=== PATIENT | female | born 1965 | race Caucasian/White ===

== ENCOUNTER → 2016-11-17 | Outpatient (CLI) | payer OTHER ==
[2016-11-16 15:31] VITALS: BP 149/89; PULSE 89; Ht 170.2 cm; Wt 81.8 kg
[~2016-11-17] VITALS: Ht 170.2 cm; Wt 81.8 kg
[~2016-11-17] MED LIST: ALBUAER2 INH; AMLO10TA2 PO; ASPI81TA21 PO; CALCTAB13 PO; CLON0.5T3 PO; FAMO20TA11 PO; FENO54TA PO; FERR325T5 PO; LOSA25TA18 PO; MYCO250C26 PO; TACR1CAP5 PO
--- NOTE | 2016-11-18 06:50 | PAP/PSG TECHNICIAN REPORT ---
Medical Services Assistant Polysomnogram Report Study name: None Report date: 11/18/2016 Study date: 11/17/2016 Referring Physician: JULIO C BAKER D.O. Name: PATEL PERNELL Pandya Interpreting Physician: Julio C Baker D.O. Date of : 1965 Medical Services Assistant: Janice Benson, PSGT. Sex: Female Age: 51 StudyType: PSG Weight: 180.3 lbs Height: 51 years, Height 5' 7" Neck Circum:13.5 inches BMI: 28.24 Medications: SEE LIST OF TWENTY MEDICATIONS IN CHART. Patient History 51 yr. old female in room 7, presents for a split night study w/ an ahi of 10. She has copd , snoring restlessness in her legs and post renal transplant. Has had edilia in the past she states that it was to mild for treatment at that time. Ess= 8, Neck= Parameters Monitored NPSG: E1-M2, E2-M1, Fp1-M2, Fp2-M1, F3-M2, F4-M2, F4-M1, C3-M2, C4-M2, C4-M1, O1-M2, O2-M2, O2-M1, T3-M2, T4-M1, P3-M2, P4-M1, CHIN1, CHIN2, HR, EKG, Legs, PFLOW, SNOR, FLOW, CFLOW, Tidal Volume, THOR, ABDO, SpO2, PLTH, CPRESS, ETCO2 Wave, ETCO2, pH Sleep Architecture Sleep Stages Time at Lights Off 9:22:05 PM STAGES Time (min.) TST (%) Time at Lights On 5:15:35 AM Wake 162.5 -- Total Recording Time (TRT) 474.00 min. N1 25.5 8 Total Sleep Period (TSP) 374.0 min. N2 196.0 63 Total Sleep Time (TST) 310.0min. N3 0.0 0 Awake Time 163.5 min. REM 88.5 29 Wake after Sleep Onset 64.0 min. Sleep Efficiency (SE) 66 % Sleep Onset Latency (SOY) 99.5 min. Number of Stage 1 Shifts None Awakenings 8 Stage Changes 42 Number of REM periods 2 REM 88.5 29 REM Latency 204.5 min. NREM 221.5 71 Body Position Analysis Supine Right Left Side Prone Vertical Total Sleep Time (min.) 180.9 27.0 153.9 180.87 0.0 0.0 Total Sleep Time (%) 42% 9% 50% 58 0% N/A% Total Sleep Time REM (min.) 58.6 0.0 29.9 None 0.0 0.0 Total Sleep Time NREM (min.) 70.5 27.0 124.0 None 0.0 0.0 Intermittent Wake (min.) 51.8 24.5 86.2 None 0.0 0.0 Total Sleep Period (%) 37% None None None None None Arousals Myoclonus (PLM) * Events Count Index Events Count Index Spontaneous 17 3 Events Awake (PLMW) 3 1.1 Respiratory 0 0.0 Events Asleep w/ Arousal (PLMA) 2 0.4 PLM 2 0 Events Asleep w/o Arousal (PLMS) 134 25.9 Snoring 19 4 Total Asleep 136 26.3 Total 37 7 Total 139 18 Respiratory Analysis * CA OA MA CH H RERA Total Count 0 0 0 0 20 18 20 Index 0.0 0.0 0.0 0 3.9 3 7.4 Mean Duration 0.0 0.0 0.0 0.00 16.5 11.6 14.2 Longest Duration 0.0 0.0 0.0 0.00 0.0 17.5 25.5 Respiratory Event Summary Total Supine ~Supine Right Left Prone REM NREM Apneas Count 0 0 0 0 0 N/A 0 0 Index 0.0 0 0 0.0 0.0 N/A 0 0 Hypopneas (4% Desat) Count 20 12 8 3 5 N/A 6 14 Index 3.9 5.6 3 6.7 1.9 N/A 4.1 3.8 Apneas & All Hypopneas Count 20 12 8 3 5 N/A 6 14 Index 3.9 6 3 7 2 N/A 4.1 3.8 Respiratory Events (Home [employer]er+All Hyp+RERA) Count 20 30 8 3 5 N/A 6 14 Index 7.4 14 3 6.7 1.9 N/A 14.2 4.6 Respiratory Related Arousal Count 0 30 0 0 0 N/A 0 0 Index 0.0 0 0 0 0 N/A 0 0 Snoring Analysis Supine Right Left Prone REM NREM Total Snore duration 51.2 min Snores count 1,200 169 1,257 N/A 778 1,848 2,626 Snore mean duration 1.2 Sec Snores index 558 376 490 N/A 527.5 500.6 508.3 TST with snoring (%) 16.5% Desaturation Event Summary: Minimum %SpO2 Event Count Mean/Min/Max Duration(sec.) Desaturation Index % Time In Bed > 90 20 25.1 / 13.8 / 51.8 4.3 60.5 86 - 90 11 22.9 / 9.3 / 37.8 3.6 39.5 81 - 85 0 N/A 0.0 0.1 76 - 80 0 N/A 0.0 0.0 71 - 75 0 N/A 0.0 0.0 66 - 70 0 N/A 0.0 0.0 61 - 65 0 N/A 0.0 0.0 56 - 60 0 N/A 0.0 0.0 51 - 55 0 N/A 0.0 0.0 < 50 0 N/A 0.0 0.0 Total REM NREM Awake <50% 0.0 min. 0.0 min. 0.0 min. 0.0 min. 51 - 60% 0.1 min. 0.0 min. 0.0 min. 0.1 min. 61 - 70% 0.0 min. 0.0 min. 0.0 min. 0.0 min. 71 - 80% 0.0 min. 0.0 min. 0.0 min. 0.0 min. 81 - 90% 182.8 min. 16.5 min. 147.0 min. 19.3 min. 91 - 100% 279.7 min. 72.0 min. 71.5 min. 136.1 min. Average 91 92 90 92 Minimum SpO2 59 88 85 59 Desaturation Event Index 3.2 7.5 4.1 0.0 # Desat. Events below 89% 13 3 10 N/A Time(%) with Saturation below 89% 8.2 0.3 7.7 0.2 Time(min.) with Saturation below 89% 37.9 1.2 35.7 1.1 Time (mins) REM (mins) NREM (mins) % of TST SpO2 Below 90% 25 10 N15 35.7 SpO2 Below 88% 5 0 0 5 Heart Rate Analysis Min (bpm) Max (bpm) Average (bpm) Awake 54 127 69 NREM 54 77 64 REM 55 74 64 Overall 54 77 64 Supplemental O2 Values Minimum O2 level: None Value Start Time End Time Medical Services Assistant Comments PSG Study MS. Keene slept in the right, left, and supine positions. No cardiac arrhythmia. PLM's noted. No bruxism noted. Snoring was noted and scored as a 3 on a scale of 1 through 5. (0=no snoring, 5=snoring loud enough to be heard through a closed door or down the james way) Ms. Keene awoke to use the restroom one time during the night. Ms. Keene stated, I did not sleep as well as I do when I am in my own bed. The final report will be interpreted and signed by a sleep physician. The completed physician report will then be placed in the patient medical record. Pt. displayed a lot of anxiety when she arrived, there was a long onset to sleep. She woke once for the bathroom and once for a leg cramp just prior to end of study. Pt. displayed low oxygen saturations along with mild edilia.Moderate snoring heard and displayed. Therapy (cm H2O) 0 TIB (min.) 472.5 TST (min.) 310.0 Sleep Onset (min.) 99.5 REM Onset From Sleep (min.) 204.5 Sleep Efficiency % 66 Wakefulness (%) 34 Wakefulness (min.) 163.5 NREM 1 (%) 8 NREM 1 (min.) 25.5 NREM 2 (%) 63 NREM 2 (min.) 196.0 NREM 3 (%) 0 NREM 3 (min.) 0.0 REM (%) 29 REM (min.) 88.5 # Arousals 37 Arousal Index 7 # Snore 2,626 Snore Index 508.3 AHI 3.9 AHI Supine 6 AHI Non-Supine 3 NREM AHI 3.8 REM AHI 4.1 RDI 7.4 # Obstructive Apnea 0 # Central Apnea 0 # Mixed Apnea 0 # Hypopneas 20 RERAs 18 Total Respiratory Events 39 Time Below SpO2 89% (min.) 36.9 Mean NREM SpO2 (%) 90 Mean REM SpO2 (%) 92 Mean Sleep SpO2 (%) 90 Min NREM SpO2 (%) 85 Min REM SpO2 (%) 88 Position Supine (min.) 180.9 Position Non-supine (min.) 180.9 LM Index Sleep 26.3 LM Index NREM 27.9 LM Index REM 22.4 Mean Heart Rate (bpm) 64 Min Heart Rate (bpm) 54
--- NOTE | 2016-11-21 01:25 | POLYSOMNOGRAPH REPORT ---
CLINICAL DATA: A 51-year-old female with BMI of 28.[address] Dumont for evaluation of obstructive sleep apnea and possible PLMD. A split night study was requested, but the patient did not reach criteria for a split night study as outlined by the ordering physician. She does have COPD, snoring, restlessness in her legs and is post-renal transplant. She had obstructive sleep apnea in the past. SLEEP ARCHITECTURE: Total sleep period was 374 minutes. Total sleep time was 310 minutes divided between 221.5 minutes of non-REM sleep and 88.5 minutes of REM sleep. Sleep onset latency was delayed at 99.5 minutes. REM latency was delayed at 204.5 minutes. Sleep efficiency was reduced at 66%. Awake after sleep onset was 64 minutes. Sleep consisted of stage N1 8%, N2 63%, REM 29%. AROUSAL DATA: 37 arousals were recorded for an index of 7 per hour. PERIODIC LIMB MOVEMENTS DATA: Nnpn-[id number]-[id number] elevation of limb movement was seen during sleep. There were 136 limb movements during sleep were noted for an index of 26.3 per hour with arousal index of 0.4 per hour. RESPIRATORY DATA: Very mild sleep-disordered breathing was noted. The AHI was 3.9. The RDI was 7.4. There were 20 hypopneic episodes. The mean duration of hypopnea was 16.5 seconds. There were 18 RERAs. The longest was 17.5 seconds. OXIMETRY DATA: Mild hypoxemia was seen. Oxygen kiara was 85% during non-REM sleep. The mean saturation was 91%. Time below 88% was 5 minutes. EKG: Heart ranged from 54-77 beats per minute. No arrhythmias were noted. FLAG MAKER'S COMMENTS AND TREATMENT SUMMARY: The patient slept in the right, left, and supine positions. No bruxism was noted. Snoring was moderate, rated 3 on a scale of 1-5. She was quite anxious when she arrived and there was a long onset to sleep. She does have some mildly reduced oxygen saturations throughout the study. IMPRESSION: Very mild sleep disordered breathing with an apnea-hypopnea index of 3.9 and respiratory disturbance index was 7.4 with mild nocturnal hypoxemia and mildly elevated limb movements during sleep. RECOMMENDATIONS: The patient may benefit from weight loss, use of an oral appliance,positional therapy, or consideration of a repeat sleep study with CPAP. Clinical correlation is needed. [facility]
== END | disposition home or self-care (01) ==
LOC: C.NEUR 21:00
PROVIDERS: ATTEND Internal Medicine Pulmonary Disease
DX: G47.33 Obstructive sleep apnea (adult) (pediatric) (principal)

== ENCOUNTER → 2016-11-24 | Outpatient (CLI) | payer OTHER ==
[~2016-11-24] VITALS: Ht 170.2 cm; Wt 83.1 kg
[2016-11-24 14:04] VITALS: BP 133/85; PULSE 92; Ht 170.2 cm; Wt 83.1 kg
== END | disposition home or self-care (01) ==
LOC: C.NEUR 13:52
PROVIDERS: ATTEND Internal Medicine Pulmonary Disease
DX: G47.33 Obstructive sleep apnea (adult) (pediatric) (principal); G47.61 Periodic limb movement disorder

== ENCOUNTER → 2017-07-27 | Outpatient (CLI) | payer OTHER ==
--- NOTE | 2017-07-27 15:23 | MAMMOGRAPHY REPORT ---
BILATERAL DIGITAL SCREENING MAMMOGRAM TOMOSYNTHESIS WITH CAD: 07/27/2017 CLINICAL HISTORY: Routine screening. TECHNIQUE: Breast tomosynthesis in addition to standard 2D mammography was performed. Current study was also evaluated with a Computer Aided Detection (CAD) system. COMPARISON: Comparison is made to exams dated: 07/26/2016 mammogram - [facility], 09/03/2013 mammogram, 11/23/2011 mammogram, and 12/09/2009 mammogram - [facility]. BREAST COMPOSITION: There are scattered areas of fibroglandular density in both breasts. FINDINGS: No suspicious masses, calcifications, or areas of architectural distortion are noted in ei ther breast. There has been no significant interval change compared to prior exams. Small circumscri bed bilateral benign-appearing masses are not significantly changed. Bilateral benign calcifications are also stable. Linear scar markers denote scars on the right upper outer and left upper outer sagar ast. IMPRESSION: ACR BI-RADS CATEGORY 2: BENIGN There is no mammographic evidence of malignancy. A 1 year screening mammogram is recommended. The pa tient will receive written notification of the results. Approximately 10% of breast cancers are not detected with mammography. A negative mammographic report should not delay biopsy if a clinically suggestive mass is present. Meghann Hurley M.D. ah/:07/27/2017 14:46:21 Marking Machine Tender: Ginette ROMERO)(M), [facility] letter sent: Normal 1/2 BI-RADS Code: ACR BI-RADS Category 2: Benign
== END | disposition home or self-care (01) ==
LOC: C.MAMM 09:40
PROVIDERS: ATTEND Nurse Practitioner Family
DX: Z12.31 Encounter for screening mammogram for malignant neoplasm of breast (principal)

== ENCOUNTER 2021-02-22 10:09 | Observation (INO) ==
[2021-02-22] MEDS ORDERED: ACETAMINOPHEN 325 MG TAB PO PRN (12:34)
[2021-02-22 13:22] LABS: Basophils # (auto) 0.01 K/uL (0-0.2); Basophils % (auto) 0.1 %; Eosinophils # (auto) 0.07 K/uL (0-0.5); Hematocrit (blood only) 37.1 % (37-47); Hemoglobin 12.3 g/dL (12.0-16.0); Immature Granulocytes # (auto) 0.01 K/uL (0.00-0.02); Immature Granulocytes % (auto) 0.1 %; Lymphocytes # (auto) 1.45 K/uL (1.2-3.4); Lymphocytes % (auto) 20.8 %; Mean Corpuscular Hemoglobin 30.8 pg (25-34); Mean Corpuscular Hgb Conc 33.2 g/dL (32-36); Monocytes # (auto) 0.43 K/uL (0.11-0.59); Monocytes % (auto) 6.2 %; Neutrophils # (auto) 4.99 K/uL (1.4-6.5); Neutrophils % (auto) 71.8 %; Platelet Count 218 K/uL (130-400); RDW Coefficient of Variation 13.5 % (11.5-14.5); RDW Standard Deviation 46.1 fL (36.4-46.3); Red Blood Count 3.99 M/uL (4.2-5.4); White Blood Count 6.96 K/uL (4.8-10.8)
[2021-02-22] MEDS: ONDANSETRON INJ 2 MG/ML 2 ML VIAL IV PRN ×2 (13:28→19:33)
[2021-02-22] MEDS: FAMOTIDINE 20 MG in SYRINGE 3 ML IV SCH ×2 (13:28→20:34)
[2021-02-22] MEDS ORDERED: MELATONIN 3 MG TAB PO PRN (14:03)
[2021-02-22 14:04] LABS: Alanine Aminotransferase 15 U/L (12-78); Albumin Level 3.5 gm/dl (3.4-5.0); Aspartate Aminotransferase 6 U/L (15-37); BUN Creatinine Ratio 15.5 (10-20); Blood Urea Nitrogen 15 mg/dl (7-18); Calcium 9.6 mg/dl (8.5-10.1); Carbon Dioxide 23 mmol/L (21-32); Chloride 112 mmol/L (98-107); Est GFR (African American) 72.9 ml/min; Est GFR (Non-African American) 62.9 ml/min; Glucose 91 mg/dl (70-99); Lipase 145 U/L (73-393); Potassium 4.1 mmol/L (3.5-5.1); Sodium 142 mmol/L (136-145)
[2021-02-22 14:06] LABS: Albumin Globulin Ratio 1.1 (0.9-2); Alkaline Phosphatase 85 U/L (45-117); Bilirubin,Total 0.4 mg/dl (0.2-1); Globulin 3.1 gm/dl (2.5-4.0); Total Protein 6.6 gm/dl (6.4-8.2)
--- NOTE | 2021-02-22 17:59 | Medical Student H&P ---
Date of Service February 22, 2021 Assessment & Plan (1) Nausea & vomiting: - Continue on IV Zofran. - Continue on IV Pepcid. - Give IVF to counter possible hypovolemia in the setting of recurrent emesis. - Given epigastric tenderness on exam, concern for gastric ulcer. EGD may be appropriate. GI consult placed. Present on Admission?: Yes (2) Hyperlipidemia: - Continue fenofibrate per home regimen. Present on Admission?: Yes (3) Hypertension: - Continue losartan per outpatient regimen. Present on Admission?: Yes (4) COPD (chronic obstructive pulmonary disease): - Continue Ventolin per outpatient regimen. Present on Admission?: Yes (5) Focal segmental glomerulosclerosis: - Continue tacrolimus and mycophenolate per outpatient regimen. Present on Admission?: Yes Admission and Anticipated Discharge Date Admission Date: February 22, 2021 History of Present Illness Chief Complaint: Nausea and Vomiting Primary Care Provider: ALYSHA Ortega Ms. Keene is a 55-year-old female with a history of focal segmental glomerulosclerosis s/p renal transplant on chronic immune suppression therapy who presents with a 3-4 week history of nausea and vomiting. She states that she has had persistent nausea and vomiting since she had her renal transplant in 2004 which she describes as vomiting 5-6 days per week. She states that this has worsened in the last few weeks to nausea and vomiting multiple times per day every day. She also endorses increased bloating and gas but states that there are times when she is unable to pass flatus. She has recently had epigastric abdominal pain that is worsened by both eating and drinking. She states that it is difficult for her to keep food down but is frequently exacerbated by her eating food 'that she shouldn't eat.' She states that she often vomits up both her anti-rejection meds and Zofran. Her emesis has been non-bloody and does not have a coffee ground appearance. She has also had diarrhea in recent days that is mucinous but non-bloody. She was seen in the [facility] ED yesterday, 02/21, at which time a CT scan revealed, "mildly dilated loops of small bowel in the left upper quadrant with associated increased central mesenteric lymphadenopathy and mild fat stranding. No distinct transition point can be identified. This could represent an enteritis or other infectious/inflammatory process. A partial small bowel obstruction is difficult to entirely exclude." A lipase was done at this time that was normal. She was discharged home with Zofran. Today, she reports that her nausea has improved with Zofran and has not have any episodes of emesis today but continues with anorexia. She continues to have epigastric pain. Allergies Allergy/AdvReac Type Severity Reaction Status Date / Time cyclophosphamide Allergy Intermediate URINARY Verified 02/22/21 12:49 RETENTION vancomycin Allergy Intermediate THROAT Verified 06/21/16 12:52 SHERIF GAGNON codeine AdvReac Mild N/V Verified 02/22/21 12:49 Home Medications Medication Instructions Recorded Confirmed Type AMLODIPINE BESYLATE (NORVASC) 10 mg PO QPM #0 tab 10/06/12 History Aspirin Enteric Coated (Ecotrin Or 81 mg PO QAM #0 tab 10/06/12 History Generic) CALCIUM CARBONATE-VITAMIN D 2 tabs PO QAM #0 tab 10/06/12 History (OS-DUANE 500 PLUS D) CLONAZEPAM (KLONOPIN) 0.5 mg PO TID #0 tab 10/06/12 History FENOFIBRATE (TRICOR) 54 mg PO QAM #0 tab 10/06/12 History LOSARTAN POTASSIUM (COZAAR) 25 mg PO QPM #0 tab 10/06/12 History TACROLIMUS (PROGRAF) 1 mg PO BID #0 cap 10/06/12 History Albuterol (Ventolin) 2 puff INHALATION QID PRN 5 Days 12/21/15 History #0 inhaler FERROUS SULFATE 1 tab PO QPM #0 12/21/15 History Famotidine (Pepcid) 20 mg PO QAM #0 tab 12/21/15 History MYCOPHENOLATE MOFETIL (CELLCEPT) 5 cap PO BID #0 cap 12/21/15 History Past Med/Surg History Surgical History (Updated 02/22/21 @ 18:47 by Berenice Pace) H/O: hysterectomy History of appendectomy Hx of cholecystectomy Renal transplant, status post Family History (Updated 02/22/21 @ 18:49 by Berenice Pace) Brother Hypertension Father Hypertension Kidney disease Mother Hypertension Sister Hypertension Son Hypertension Family/Other Kidney disease [place] Syndrome Social History (Updated 02/22/21 @ 18:51 by Berenice Pace) Smoking Status: Former smoker Tobacco Type: Cigarettes Age Quit Using Tobacco: 53; Years Smoked: 15; Second Hand Exposure: Yes; Do You Dip or Chew Tobacco: No; Hx Alcohol Use: No Preferred Language: Czech Communication Ability: Effective Medical Support Specialist Required: No Beliefs That Will Affect Care: None Current Living Situation: Spouse Other Information That Helps Us Care for You: No Feels Safe at Home: Yes Safety Concerns: Feels Safe At This Time Assistive Devices: Denture - Upper and Glasses Review of Systems + sweats intermittent facial swelling Physical Exam Physical Exam: Patient resting comfortably on exam. In no acute distress. Constitutional: WD/WN, vitals as above Respiratory: normal respiratory effort Auscultation: + wheezes Cardiovascular: RRR, no murmur, no edema Gastrointestinal (Abdomen): Inspection/Auscultation: abdomen normal to inspection and normal bowel sounds; abdomen not distended Percussion/Palpation: + abdomen tender (epigastric region) and abdomen soft; no guarding Skin: no rashes, warm and dry Psychiatric: A+Ox3, euthymic affect Results & Data ([facility]) Vital Signs (Past 12 Hours) Vital Signs Temp Resp BP Pulse Ox 02/22/21 15:00 36.9 C 18 147/70 H 90 02/22/21 12:35 37 C 16 145/82 H 91 Laboratory Results 02/22/21 02/22/21 02/22/21 18:38 12:56 12:56 WBC 6.96 RBC 3.99 L Hgb 12.3 Hct 37.1 MCV 93.0 MCH 30.8 MCHC 33.2 RDW Std Deviation 46.1 RDW Coeff of Deepali 13.5 Plt Count 218 MPV 11.0 H Immature Gran % (Auto) 0.1 Neut % (Auto) 71.8 Lymph % (Auto) 20.8 [place] % (Auto) 6.2 Eos % (Auto) 1.0 Baso % (Auto) 0.1 Neut # (Auto) 4.99 Lymph # (Auto) 1.45 [place] # (Auto) 0.43 Eos # (Auto) 0.07 Baso # (Auto) 0.01 Immature Gran # (Auto) 0.01 Sodium 142 Potassium 4.1 Chloride 112 H Carbon Dioxide 23 Anion Gap 7.0 BUN 15 Creatinine 1.00 Est Cr Clr Drug Dosing Not Reportable Est GFR ( Amer) 72.9 Est GFR (Non-Af Amer) 62.9 BUN/Creatinine Ratio 15.5 Glucose 91 Calcium 9.6 Total Bilirubin 0.4 AST 6 L ALT 15 Alkaline Phosphatase 85 Total Protein 6.6 Albumin 3.5 Globulin 3.1 Albumin/Globulin Ratio 1.1 Lipase 145 COVID-19 Eval Order Covid19 at [facility] Diagnostic Findings Outside CT as per subjective. Medications Administered Current Inpatient Medications Acetaminophen (Acetaminophen 325 Mg Tab) 650 mg PO Q4H PRN PRN Reason: Pain or Fever Stop: 03/24/21 12:33 Famotidine 20 mg/ Syringe 5 mls @ 2.5 mls/min IV BID MYRIAM Stop: 03/24/21 12:59 Last Admin: 02/22/21 13:28 Dose: 2.5 mls/min Documented by: Losartan Potassium (Losartan Potassium 50 Mg Tab) 100 mg PO QPM MYRIAM Stop: 03/24/21 20:59 Melatonin (Melatonin 3 Mg Tab) 3 mg PO HS PRN PRN Reason: Sleep Stop: 03/24/21 14:02 Mycophenolate Mofetil (Mycophenolate Mofetil 250 Mg Cap) 1,250 mg PO BID MYRIAM Stop: 03/24/21 20:59 Ondansetron HCl (Ondansetron Inj 2 Mg/Ml 2 Ml Vial) 4 mg IV Q6H PRN PRN Reason: Nausea Stop: 03/24/21 12:33 Last Admin: 02/22/21 13:28 Dose: 4 mg Documented by: Tacrolimus (Tacrolimus 1 Mg Cap) 1 mg PO BID MYRIAM Stop: 03/24/21 20:59 Code Status & VTE Plan VTE Prophylaxis Plan VTE Prophylaxis will be ordered: Yes Supervising Attestation I personally examined the patient and verified all patel points of history and exam, discussed case, and agree with decision making with Marlee Pace MS4. Notes that she has ongoing nausea and vomiting for yearsbasically since the transplant. She notes that there are times of ups and downs of it, but also notes that over the last few weeks and definitely over the last week she has done far worse than before. She has a degree of epigastric pain fairly frequently if not constantly, and a lot more nausea and vomiting, including 2 days in the last 3 or 4 days where she was basically vomiting for hours and hours straight. She notes also some degree of night sweats over the last 5 months or so, weight loss of about 10 pounds over the last month, and may be another 10 pounds prior to that over the last for 5 months. She denies any hematemesis. Vitals noted, in general she is awake and alert pleasant but appears very fatigued. HEENT normocephalic atraumatic mucous membranes are moist. Breathing unlabored no accessory muscle use good effort. Skin shows no rashes no pallor or icterus. Abdomen is soft but she has fairly significant epigastric tenderness no rigidity or rebound. Extremities show no cyanosis clubbing. Intractable nausea and vomitingquestion whether this is just a worsening of her normal cycles of nausea and vomiting, possibly made worse by degree of dehydration, versus if she is starting to develop a degree of peptic ulcer disease. Will treat with supportive/symptomatic care, but also ask GI to see her in regards to possibly an EGD. We will try to start to put together a better assessment and plan for her chronic nausea and vomiting as well. Night sweatswe will follow, and work on further work-up if necessary. DVT prophylaxisambulation
[2021-02-22] MEDS ORDERED: clonazePAM 0.5 MG TAB PO PRN (19:58)
--- NOTE | 2021-02-22 20:02 | Billing Data ---
Date of Service February 22, 2021 Coding Level of Care Code 13233 OBS Care - Level 3
[2021-02-22] MEDS: LACTATED RINGER'S 1,000 ML IV SCH (20:08)
[2021-02-22] MEDS: TACROLIMUS 1 MG CAP PO SCH (20:35)
[2021-02-22] MEDS: risperiDONE 0.5 MG TABLET PO SCH (20:35)
[2021-02-22] MEDS: MYCOPHENOLATE MOFETIL 250 MG CAP PO SCH (20:35)
[2021-02-22] MEDS: LOSARTAN POTASSIUM 50 MG TAB PO SCH (21:18)
[2021-02-22] MEDS: NICOTINE 14 MG/24 HR PATCH TD SCH (22:07)
[2021-02-23] MEDS: ONDANSETRON INJ 2 MG/ML 2 ML VIAL IV PRN ×3 (01:49→17:32)
[2021-02-23] MEDS: LACTATED RINGER'S 1,000 ML IV SCH ×3 (03:39→19:14)
[2021-02-23 07:13] LABS: Hematocrit (blood only) 38.1 % (37-47); Hemoglobin 12.7 g/dL (12.0-16.0); Mean Corpuscular Hemoglobin 31.5 pg (25-34); Mean Corpuscular Hgb Conc 33.3 g/dL (32-36); Mean Corpuscular Volume 94.5 fL (80-100); Mean Platelet Volume 11.2 fL (7.4-10.4); Platelet Count 204 K/uL (130-400); RDW Coefficient of Variation 13.3 % (11.5-14.5); RDW Standard Deviation 45.9 fL (36.4-46.3); Red Blood Count 4.03 M/uL (4.2-5.4)
[2021-02-23 07:45] LABS: C Reactive Protein 0.91 mg/dl (0-0.29); Calcium 9.4 mg/dl (8.5-10.1); Creatinine Clr Calc Pharmacy 71.5 ml/min; Est GFR (African American) 77.6 ml/min; Magnesium 1.6 mg/dl (1.8-2.4); Phosphorus 3.4 mg/dl (2.5-4.9); Potassium 4.1 mmol/L (3.5-5.1)
[2021-02-23] MEDS: TACROLIMUS 1 MG CAP PO SCH ×2 (08:00→20:09)
[2021-02-23] MEDS: MYCOPHENOLATE MOFETIL 250 MG CAP PO SCH ×2 (08:00→20:08)
[2021-02-23] MEDS: FAMOTIDINE 20 MG in SYRINGE 3 ML IV SCH ×2 (08:10→20:22)
--- NOTE | 2021-02-23 09:19 | Gastrointestinal Consultation ---
Date of Consultation February 23, 2021 Assessment & Plan (1) Nausea & vomiting: (2) LUQ pain: DDX: GERD vs gastritis vs PUD vs gastroparesis vs ileus vs PSBO vs other. 1. Abdominal series now. 2. Continue Famotidine 20 mg BID. 3. Recommend tobacco cessation efforts. 4. If no obstruction, will consider EGD for further evaluation tomorrow. Thank you for allowing us to participate in the care of this pleasant patient. If you have any questions or concerns, please do not hesitate to contact us. Supervising Physician Co-Signing Physician Notes I personally evaluated the patient and agree with the findings as documented by ALYSHA Brody Exam: abd: soft, mild epigastric, LUQ tenderness, nd f/u abdominal series, if normal then plan for EGD tomorrow to further evaluate, keep NPO at this time regardless. History of Present Illness Reason for Consultation: N/V Requesting Physician: Dr. Quintana Attending Physician: David Mckeon DO History of Present Illness Patient is a very pleasant 55 y.o. female with a history of focal segmental glomerulosclerosis s/p renal transplant with chronic nausea and vomiting admitted with an acute onset of worsening nausea with vomiting as well as LUQ pain which began approximately 3-4 weeks ago. She states the onset of symptoms was preceded by an episode of heavy lifting of several cases of bottled water. She reports she has been having abdominal pain since that time. Denies any fevers or chills. Emesis starts as undigested food, then turns to bilious and eventually "foamy". The abdomen is constantly tender but more intense pains wax and wane. She states that eating worsens her symptoms. There is associated sensation of fullness and bloating and distention in the LUQ after eating. Describes her bowel movements as soft, to loose, with a frequency of several times per day. No bloody or black stools. No hematemesis. Denies any NSAID use. +low dose aspirin which she states she stopped at the onset of her GI symptoms. + daily tobacco use but denies ETOH. Reports she was previously diagnosed with a hiatus hernia via upper endoscopy performed ~ 5 years ago. From review of H&P, it appears she did have a nonenhanced CT abdomen which demonstrated dilated LUQ small bowel loops with associated fat stranding without discreet mass or transition point to suggest obstruction. Labs from this morning demonstrated no leukocytosis, anemia or liver panel elevations. Lipase was normal at 145. Allergies Allergy/AdvReac Type Severity Reaction Status Date / Time cyclophosphamide Allergy Intermediate URINARY Verified 02/22/21 12:49 RETENTION vancomycin Allergy Intermediate THROAT Verified 06/21/16 12:52 SWELLS HIVJOSE codeine AdvReac Mild N/V Verified 02/22/21 12:49 Home Medications Medication Instructions Recorded Confirmed Type AMLODIPINE BESYLATE (NORVASC) 10 mg PO QPM #0 tab 10/06/12 History Aspirin Enteric Coated (Ecotrin Or 81 mg PO QAM #0 tab 10/06/12 History Generic) CALCIUM CARBONATE-VITAMIN D 2 tabs PO QAM #0 tab 10/06/12 History (OS-DUANE 500 PLUS D) CLONAZEPAM (KLONOPIN) 0.5 mg PO TID #0 tab 10/06/12 History FENOFIBRATE (TRICOR) 54 mg PO QAM #0 tab 10/06/12 History LOSARTAN POTASSIUM (COZAAR) 25 mg PO QPM #0 tab 10/06/12 History TACROLIMUS (PROGRAF) 1 mg PO BID #0 cap 10/06/12 History Albuterol (Ventolin) 2 puff INHALATION QID PRN 5 Days 12/21/15 History #0 inhaler FERROUS SULFATE 1 tab PO QPM #0 12/21/15 History Famotidine (Pepcid) 20 mg PO QAM #0 tab 12/21/15 History MYCOPHENOLATE MOFETIL (CELLCEPT) 5 cap PO BID #0 cap 12/21/15 History Patient History Surgical History H/O: hysterectomy History of appendectomy Hx of cholecystectomy Renal transplant, status post Family History Brother Hypertension Father Hypertension Kidney disease Mother Hypertension Sister Hypertension Son Hypertension Family/Other Kidney disease Alport Syndrome Social History Smoking Status: Former smoker Tobacco Type: Cigarettes Age Quit Using Tobacco: 53; Years Smoked: 15; Second Hand Exposure: Yes; Do You Dip or Chew Tobacco: No; Hx Alcohol Use: No Preferred Language: Pashto Communication Ability: Effective Pharmacy Resource Tech Required: No Beliefs That Will Affect Care: None Current Living Situation: Spouse Other Information That Helps Us Care for You: No Feels Safe at Home: Yes Safety Concerns: Feels Safe At This Time Assistive Devices: None Review of Systems Review of Systems: All systems reviewed & are unremarkable except as noted in HPI & below Physical Exam Constitutional: WD/WN, vitals as above Eyes: EOM intact bilaterally Neck: normal appearance Respiratory: normal respiratory effort, lungs clear to auscultation Cardiovascular: Rate/Rhythm: regular rate and regular rhythm Heart Sounds: no gallop and no murmur Gastrointestinal (Abdomen): Inspection/Auscultation: normal bowel sounds Percussion/Palpation: + abdomen tender (LUQ) and abdomen soft; no guarding, abdomen not rigid and no hernia Musculoskeletal: Extremities: no cyanosis no lower extremity edema Skin: no rashes, warm and dry Neurologic: moves all extremities Psychiatric: A+Ox3, euthymic affect Results & Data ([facility]) Vital Signs (Past 12 Hours) Vital Signs Temp Pulse Resp BP Pulse Ox 02/23/21 07:32 36.7 C 58 L 18 139/91 94 02/23/21 01:54 36.8 C 02/22/21 22:00 36.9 C 70 18 133/79 94 Laboratory Results Abnormal lab results 02/22/21 02/22/21 02/23/21 Range/Units 12:56 12:56 06:44 RBC 3.99 L (4.2-5.4) M/uL MPV 11.0 H (7.4-10.4) fL Chloride 112 H 112 H (98-107) mmol/L Magnesium 1.6 L (1.8-2.4) mg/dl AST 6 L (15-37) U/L C-Reactive Protein 0.91 H (0-0.29) mg/dl 02/23/21 Range/Units 06:44 RBC 4.03 L (4.2-5.4) M/uL MPV 11.2 H (7.4-10.4) fL Chloride (98-107) mmol/L Magnesium (1.8-2.4) mg/dl AST (15-37) U/L C-Reactive Protein (0-0.29) mg/dl PG Care Time/CCT Total # of Minutes Spent Total Time Spent with Patient: Total time spent is greater than 50% in coordina tion of care (as documented) at patient's floor/unit and/or counseling patient: Coding Level of Care Code 40144 Initial Inpt Care Lvl 3 Diagnoses Nausea & vomiting R11.2 LUQ pain R10.12
--- NOTE | 2021-02-23 12:38 | Medical Student Progress Note ---
Date of Service February 23, 2021 Assessment & Plan (1) Nausea & vomiting: Ms. Keene is a 55-year-old female with a history of focal segmental glomerulosclerosis s/p renal transplant with a history of acute on chronic nausea and vomiting. Suspect that the chronic nausea is due to her immunosuppr ession medication; however, given the different character and quantity of the acute nausea vomiting it is potentially concerning for GERD vs. gastritis vs. peptic ulcer disease vs. gastroparesis vs. ileus vs. partial small bowel obstruction vs. another etiology. - Continue on IV Zofran. - Continue on IV Pepcid. - Give IVF to counter possible hypovolemia in the setting of recurrent emesis. - Appreciate GI consult. - Patient to undergo abdominal series today. If no obstruction, EGD tomorrow. - NPO in preparation for possible EGD. (2) Hyperlipidemia: - Continue fenofibrate per home regimen. (3) Hypertension: - Continue losartan per outpatient regimen. (4) COPD (chronic obstructive pulmonary disease): - Continue Ventolin per outpatient regimen. (5) Focal segmental glomerulosclerosis: - Continue tacrolimus and mycophenolate per outpatient regimen. Admission and Anticipated Discharge Date Admission Date: February 22, 2021 Supervising Attestation I personally examined the patient and verified all patel points of history and exam, discussed case, and agree with decision making with Marlee Pace MS4 Feeling a bit better today. X-rays donefor EGD tomorrow. No other new complaints. Vitals noted, in general she is awake and alert pleasant no distress. HEENT normocephalic atraumatic mucous membranes moist. Abdomen is soft she still has ongoing epigastric tenderness although not quite as much as yesterday, still no guarding rebound or rigidity. Nausea vomiting abdominal paincontinue supportive care, EGD tomorrow. Otherwise as above. Subjective Ms. Keene is a 55-year-old female with a history of focal segmental glomerulosclerosis s/p renal transplant on chronic immune suppression therapy who presents with a 3-4 week history of nausea and vomiting in the context of chronic nausea and vomiting. She is doing well today with no nausea and vomiting today. She does endorse a bowel movement last night. She states that she has not had any abdominal pain overnight but did have some cramping and gas in the epigastric region upon eating broth this morning. Review of Systems Constitutional: + sweats (night sweats) Neurologic: Facial swelling in the outpatient setting Physical Exam Physical Exam: Patient resting comfortably on exam. In no acute distress. Constitutional: WD/WN, vitals as above Respiratory: normal respiratory effort Auscultation: + wheezes Cardiovascular: RRR, no murmur, no edema Gastrointestinal (Abdomen): Inspection/Auscultation: abdomen normal to inspection and normal bowel sounds; abdomen not distended Percussion/Palpation: + abdomen tender (epigastric region; decreased from yesterday) and abdomen soft; no guarding Skin: no rashes, warm and dry Psychiatric: A+Ox3, euthymic affect Results & Data ([facility]) Vital Signs (Past 12 Hours) Vital Signs Temp Pulse Resp BP Pulse Ox 02/23/21 07:32 36.7 C 58 L 18 139/91 94 02/23/21 01:54 36.8 C Laboratory Results 02/23/21 02/23/21 02/23/21 06:44 06:44 06:44 WBC 6.20 RBC 4.03 L Hgb 12.7 Hct 38.1 MCV 94.5 MCH 31.5 MCHC 33.3 RDW Std Deviation 45.9 RDW Coeff of Deepali 13.3 Plt Count 204 MPV 11.2 H Immature Gran % (Auto) Neut % (Auto) Lymph % (Auto) Franklin % (Auto) Eos % (Auto) Baso % (Auto) Neut # (Auto) Lymph # (Auto) Franklin # (Auto) Eos # (Auto) Baso # (Auto) Immature Gran # (Auto) ESR 11 Sodium 144 Potassium 4.1 Chloride 112 H Carbon Dioxide 26 Anion Gap 6.0 BUN 10 D Creatinine 0.95 Est Cr Clr Drug Dosing 71.5 Est GFR ( Amer) 77.6 Est GFR (Non-Af Amer) 67.0 BUN/Creatinine Ratio 10.0 Glucose 98 Calcium 9.4 Phosphorus 3.4 Magnesium 1.6 L Total Bilirubin AST ALT Alkaline Phosphatase C-Reactive Protein 0.91 H Total Protein Albumin Globulin Albumin/Globulin Ratio Lipase COVID-19 Eval Order SARS-CoV-2 (PCR) 02/22/21 02/22/21 02/22/21 18:38 18:38 12:56 WBC RBC Hgb Hct MCV MCH MCHC RDW Std Deviation RDW Coeff of Deepali Plt Count MPV Immature Gran % (Auto) Neut % (Auto) Lymph % (Auto) Franklin % (Auto) Eos % (Auto) Baso % (Auto) Neut # (Auto) Lymph # (Auto) Franklin # (Auto) Eos # (Auto) Baso # (Auto) Immature Gran # (Auto) ESR Sodium 142 Potassium 4.1 Chloride 112 H Carbon Dioxide 23 Anion Gap 7.0 BUN 15 Creatinine 1.00 Est Cr Clr Drug Dosing Not Reportable Est GFR ( Amer) 72.9 Est GFR (Non-Af Amer) 62.9 BUN/Creatinine Ratio 15.5 Glucose 91 Calcium 9.6 Phosphorus Magnesium Total Bilirubin 0.4 AST 6 L ALT 15 Alkaline Phosphatase 85 C-Reactive Protein Total Protein 6.6 Albumin 3.5 Globulin 3.1 Albumin/Globulin Ratio 1.1 Lipase 145 COVID-19 Eval Order Covid19 at [facility] SARS-CoV-2 (PCR) NEGATIVE 02/22/21 12:56 WBC 6.96 RBC 3.99 L Hgb 12.3 Hct 37.1 MCV 93.0 MCH 30.8 MCHC 33.2 RDW Std Deviation 46.1 RDW Coeff of Deepali 13.5 Plt Count 218 MPV 11.0 H Immature Gran % (Auto) 0.1 Neut % (Auto) 71.8 Lymph % (Auto) 20.8 Franklin % (Auto) 6.2 Eos % (Auto) 1.0 Baso % (Auto) 0.1 Neut # (Auto) 4.99 Lymph # (Auto) 1.45 Franklin # (Auto) 0.43 Eos # (Auto) 0.07 Baso # (Auto) 0.01 Immature Gran # (Auto) 0.01 ESR Sodium Potassium Chloride Carbon Dioxide Anion Gap BUN Creatinine Est Cr Clr Drug Dosing Est GFR ( Amer) Est GFR (Non-Af Amer) BUN/Creatinine Ratio Glucose Calcium Phosphorus Magnesium Total Bilirubin AST ALT Alkaline Phosphatase C-Reactive Protein Total Protein Albumin Globulin Albumin/Globulin Ratio Lipase COVID-19 Eval Order SARS-CoV-2 (PCR) Medications Administered Current Inpatient Medications Acetaminophen (Acetaminophen 325 Mg Tab) 650 mg PO Q4H PRN PRN Reason: Pain or Fever Stop: 03/24/21 12:33 Clonazepam (Clonazepam 0.5 Mg Tab) 0.5 mg PO TID PRN PRN Reason: Anxiety Stop: 03/24/21 19:57 Last Admin: 02/22/21 20:35 Dose: 0.5 mg Documented by: Famotidine 20 mg/ Syringe 5 mls @ 2.5 mls/min IV BID MYRIAM Stop: 03/24/21 12:59 Last Admin: 02/23/21 08:10 Dose: 2.5 mls/min Documented by: Lactated Ringer's (Lr) 1,000 mls @ 125 mls/hr IV .Q8H MYRIAM Stop: 03/24/21 20:14 Last Admin: 02/23/21 11:12 Dose: 125 mls/hr Documented by: Losartan Potassium (Losartan Potassium 50 Mg Tab) 100 mg PO QPM MYRIAM Stop: 03/24/21 20:59 Last Admin: 02/22/21 21:18 Dose: 100 mg Documented by: Melatonin (Melatonin 3 Mg Tab) 3 mg PO HS PRN PRN Reason: Sleep Stop: 03/24/21 14:02 Last Admin: 02/22/21 20:35 Dose: 3 mg Documented by: Miscellaneous (Remove Nicoderm Patch) 1 ea N/A DAILY@2058 [facility] Stop: 03/25/21 20:58 Mycophenolate Mofetil (Mycophenolate Mofetil 250 Mg Cap) 1,250 mg PO BID [facility] Stop: 03/24/21 20:59 Last Admin: 02/23/21 08:00 Dose: 1,250 mg Documented by: Nicotine (Nicotine 14 Mg/24 Hr Patch) 14 mg TD HS MYRIAM Stop: 03/24/21 20:59 Last Admin: 02/22/21 22:07 Dose: 14 mg Documented by: Ondansetron HCl (Ondansetron Inj 2 Mg/Ml 2 Ml Vial) 4 mg IV Q6H PRN PRN Reason: Nausea Stop: 03/24/21 12:33 Last Admin: 02/23/21 09:19 Dose: 4 mg Documented by: Risperidone (Risperidone 0.5 Mg Tablet) 0.5 mg PO HS MYRIAM Stop: 03/24/21 20:59 Last Admin: 02/22/21 20:35 Dose: 0.5 mg Documented by: Tacrolimus (Tacrolimus 1 Mg Cap) 1 mg PO BID MYRIAM Stop: 03/24/21 20:59 Last Admin: 02/23/21 08:00 Dose: 1 mg Documented by:
--- NOTE | 2021-02-23 15:31 | XRay Report ---
XR abdomen 2V w PA chest CLINICAL HISTORY: abnormal CT, dilated LUQ bowel loops. ?ileus/PSBO COMPARISON STUDY: October 06, 2012 FINDINGS: The erect chest reveals no evidence of free air. There is no evidence of focal pulmonary co nsolidation.] Erect and supine views of the abdomen reveal no abnormally dilated loops of large or sm all bowel. Cholecystectomy clips are seen within the right upper quadrant. Multiple calcifications are seen projecting to the lower pelvic region and could represent phlebolith s. IMPRESSION: No evidence of bowel obstruction. No evidence of free air. ACT 112: Negative or not required by law. The above report was generated using voice recognition software. It may contain grammatical, syntax o r spelling errors. Electronically signed by: Keyonna Ahumada DO 02/23/2021 3:29 PM
--- NOTE | 2021-02-23 17:38 | Billing Data ---
Date of Service February 23, 2021 Coding Level of Care Code 63319 Subseq Obs Care Lvl 2
[2021-02-23] MEDS: NICOTINE 14 MG/24 HR PATCH TD SCH (20:09)
[2021-02-23] MEDS: LOSARTAN POTASSIUM 50 MG TAB PO SCH (20:09)
[2021-02-23] MEDS: risperiDONE 0.5 MG TABLET PO SCH (20:09)
[2021-02-24] MEDS: LACTATED RINGER'S 1,000 ML IV SCH ×2 (03:49→12:11)
[2021-02-24] MEDS: ONDANSETRON INJ 2 MG/ML 2 ML VIAL IV PRN (03:53)
[2021-02-24] MEDS: TACROLIMUS 1 MG CAP PO SCH (07:34)
[2021-02-24] MEDS: MYCOPHENOLATE MOFETIL 250 MG CAP PO SCH (07:34)
[2021-02-24] MEDS: FAMOTIDINE 20 MG in SYRINGE 3 ML IV SCH (07:39)
--- NOTE | 2021-02-24 09:48 | Medical Student Progress Note ---
Date of Service February 24, 2021 Assessment & Plan (1) Nausea & vomiting: Ms. Keene is a 55-year-old female with a history of focal segmental glomerulosclerosis s/p renal transplant with a history of acute on chronic nausea and vomiting. Suspect that the chronic nausea is due to her immunosuppr ession medication; however, given the different character and quantity of the acute nausea vomiting it is potentially concerning for GERD vs. gastritis vs. peptic ulcer disease vs. gastroparesis vs. ileus vs. partial small bowel obstruction vs. another etiology. EGD showing evidence of gastritis and celiac disease. (1) Gastritis: - Continue Zofran for symptomatic relief of nausea/vomiting. - Switch Pepcid to omeprazole. Continue for 1-3 months dependent on symptomatic relief. - Pending H. pylori, if positive, begin triple therapy. - Advanced diet to clear liquids. (2) Celiac Disease: - Trial gluten-free diet. Educate patient about diet. (2) Hyperlipidemia: - Continue fenofibrate per home regimen. (3) Hypertension: - Continue losartan per outpatient regimen. (4) COPD (chronic obstructive pulmonary disease): - Continue Ventolin per outpatient regimen. (5) Focal segmental glomerulosclerosis: - Continue tacrolimus and mycophenolate per outpatient regimen. Dispo: d/c FEN: Clear Liquids. VTE: SCDs. Code: DNR/DNI Admission and Anticipated Discharge Date Admission Date: February 22, 2021 Subjective Ms. Keene is a 55-year-old female with a history of focal segmental glomerulosclerosis s/p renal transplant on chronic immune suppression therapy who presents with a 3-4 week history of nausea and vomiting in the context of chronic nausea and vomiting. She is doing well today with no nausea, vomiting, or abdominal pain. She endorses some mild epigastric cramping. She states that she had some anorexia yesterday and was unable to eat dinner. However, her abdominal pain was greatly improved in the context of not eating. She does endorse a bowel movement yesterday that was formed. Review of Systems Constitutional: + sweats (night sweats) Ear, Nose, Mouth, Throat: Neurologic: Intermittent facial swelling in the outpatient setting Physical Exam Physical Exam: Patient resting comfortably on exam. In no acute distress. Constitutional: WD/WN, vitals as above Cardiovascular: RRR, no murmur, no edema Gastrointestinal (Abdomen): Inspection/Auscultation: abdomen normal to inspection and normal bowel sounds; abdomen not distended Percussion/Palpation: + abdomen tender (mild in the epigastric region) and abdomen soft; no guarding Skin: no rashes, warm and dry Psychiatric: A+Ox3, euthymic affect Results & Data ([facility]) Vital Signs (Past 12 Hours) Vital Signs Temp Pulse Resp BP BP Pulse Ox 02/24/21 07:36 36.7 C 64 18 143/84 H 94 02/23/21 23:00 36.9 C 68 20 168/80 H 94 Diagnostic Findings Abdominal X-ray: No free air; no obstruction. EGD: Medium-sized hiatal hernia. Gastritis. Biopsied. Flattened mucosa was found in the duodenum, suspicious for celiac disease. Biopsied. Normal duodenal bulb. Medications Administered Current Inpatient Medications Acetaminophen (Acetaminophen 325 Mg Tab) 650 mg PO Q4H PRN PRN Reason: Pain or Fever Stop: 03/24/21 12:33 Clonazepam (Clonazepam 0.5 Mg Tab) 0.5 mg PO TID PRN PRN Reason: Anxiety Stop: 03/24/21 19:57 Last Admin: 02/22/21 20:35 Dose: 0.5 mg Documented by: Famotidine 20 mg/ Syringe 5 mls @ 2.5 mls/min IV BID MYRIAM Stop: 03/24/21 12:59 Last Admin: 02/24/21 07:39 Dose: 2.5 mls/min Documented by: Lactated Ringer's (Lr) 1,000 mls @ 125 mls/hr IV .Q8H MYRIAM Stop: 03/24/21 20:14 Last Admin: 02/24/21 03:49 Dose: 125 mls/hr Documented by: Losartan Potassium (Losartan Potassium 50 Mg Tab) 100 mg PO QPM MYRIAM Stop: 03/24/21 20:59 Last Admin: 02/23/21 20:09 Dose: 100 mg Documented by: Melatonin (Melatonin 3 Mg Tab) 3 mg PO HS PRN PRN Reason: Sleep Stop: 03/24/21 14:02 Last Admin: 02/22/21 20:35 Dose: 3 mg Documented by: Miscellaneous (Remove Nicoderm Patch) 1 ea N/A DAILY@2058 MY[facility] Stop: 03/25/21 20:58 Last Admin: 02/23/21 20:09 Dose: 1 ea Documented by: Mycophenolate Mofetil (Mycophenolate Mofetil 250 Mg Cap) 1,250 mg PO BID [facility] Stop: 03/24/21 20:59 Last Admin: 02/24/21 07:34 Dose: 1,250 mg Documented by: Nicotine (Nicotine 14 Mg/24 Hr Patch) 14 mg TD HS [facility] Stop: 03/24/21 20:59 Last Admin: 02/23/21 20:09 Dose: 14 mg Documented by: Ondansetron HCl (Ondansetron Inj 2 Mg/Ml 2 Ml Vial) 4 mg IV Q6H PRN PRN Reason: Nausea Stop: 03/24/21 12:33 Last Admin: 02/24/21 03:53 Dose: 4 mg Documented by: Risperidone (Risperidone 0.5 Mg Tablet) 0.5 mg PO HS [facility] Stop: 03/24/21 20:59 Last Admin: 02/23/21 20:09 Dose: 0.5 mg Documented by: Tacrolimus (Tacrolimus 1 Mg Cap) 1 mg PO BID MYRIAM Stop: 03/24/21 20:59 Last Admin: 02/24/21 07:34 Dose: 1 mg Documented by:
--- NOTE | 2021-02-24 10:17 | Anesthesiology Consultation ---
Date of Service February 24, 2021 Assessment & Plan Chart Review Chart Review: Acceptable Risk for Surgery, Patient NOT seen in Pre Admission Testing and entry specialist initiated Consults Requested none ASA ASA3 History Surgery Operation Date: 02/24/21 17:45 Proposed Procedures p Esophagogastroduodenoscopy Dr. Degroot - Oswaldo Degroot MD Height/Weight Height: 5 ft 7 in Weight: 78.9 kg Allergies Allergy/AdvReac Type Severity Reaction Status Date / Time cyclophosphamide Allergy Intermediate URINARY Verified 02/22/21 12:49 RETENTION vancomycin Allergy Intermediate THROAT Verified 06/21/16 12:52 SWELLS, HIVES codeine AdvReac Mild N/V Verified 02/22/21 12:49 Medications Home Medications Medication Instructions Recorded Confirmed Last Taken AMLODIPINE BESYLATE (NORVASC) 10 mg PO QPM #0 tab 10/06/12 Unknown Aspirin Enteric Coated (Ecotrin Or 81 mg PO QAM #0 tab 10/06/12 Unknown Generic) CALCIUM CARBONATE-VITAMIN D 2 tabs PO QAM #0 tab 10/06/12 Unknown (OS-DUANE 500 PLUS D) CLONAZEPAM (KLONOPIN) 0.5 mg PO TID #0 tab 10/06/12 Unknown FENOFIBRATE (TRICOR) 54 mg PO QAM #0 tab 10/06/12 Unknown LOSARTAN POTASSIUM (COZAAR) 25 mg PO QPM #0 tab 10/06/12 Unknown TACROLIMUS (PROGRAF) 1 mg PO BID #0 cap 10/06/12 Unknown Albuterol (Ventolin) 2 puff INHALATION QID PRN 5 Days 12/21/15 Unknown #0 inhaler FERROUS SULFATE 1 tab PO QPM #0 12/21/15 Unknown Famotidine (Pepcid) 20 mg PO QAM #0 tab 12/21/15 Unknown MYCOPHENOLATE MOFETIL (CELLCEPT) 5 cap PO BID #0 cap 12/21/15 Unknown Active Medications Generic Name Dose Route Start Last Admin Trade Name Freq PRN Reason Stop Dose Admin Clonazepam 0.5 mg 02/22/21 19:58 02/22/21 20:35 Clonazepam 0.5 Mg Tab PO 03/24/21 19:57 0.5 mg TID PRN Administration Anxiety Famotidine 20 mg/ Syringe 5 mls @ 2.5 mls/min 02/22/21 13:00 02/24/21 07:39 IV 03/24/21 12:59 2.5 mls/min BID MYRIAM Administration Lactated Ringer's 1,000 mls @ 125 mls/hr 02/22/21 20:15 02/24/21 03:49 Lr IV 03/24/21 20:14 125 mls/hr .Q8H MYRIAM Administration Losartan Potassium 100 mg 02/22/21 21:00 02/23/21 20:09 Losartan Potassium 50 Mg Tab PO 03/24/21 20:59 100 mg QPM MYRIAM Administration Melatonin 3 mg 02/22/21 14:03 02/22/21 20:35 Melatonin 3 Mg Tab PO 03/24/21 14:02 3 mg HS PRN Administration Sleep Miscellaneous 1 ea 02/23/21 20:59 02/23/21 20:09 Remove Nicoderm Patch N/A 03/25/21 20:58 1 ea DAILY@2058 MYRIAM Administration Mycophenolate Mofetil 1,250 mg 02/22/21 21:00 02/24/21 07:34 Mycophenolate Mofetil 250 Mg Cap PO 03/24/21 20:59 1,250 mg BID MYRIAM Administration Nicotine 14 mg 02/22/21 21:00 02/23/21 20:09 Nicotine 14 Mg/24 Hr Patch TD 03/24/21 20:59 14 mg HS MYIRAM Administration Ondansetron HCl 4 mg 02/22/21 12:34 02/24/21 03:53 Ondansetron Inj 2 Mg/Ml 2 Ml Vial IV 03/24/21 12:33 4 mg Q6H PRN Administration Nausea Risperidone 0.5 mg 02/22/21 21:00 02/23/21 20:09 Risperidone 0.5 Mg Tablet PO 03/24/21 20:59 0.5 mg HS MYRIAM Administration Tacrolimus 1 mg 02/22/21 21:00 02/24/21 07:34 Tacrolimus 1 Mg Cap PO 03/24/21 20:59 1 mg BID MYRIMA Administration Past Medical History Medical History (Updated 02/24/21 @ 10:16 by Fer Foreman MD) COPD (chronic obstructive pulmonary disease) Focal segmental glomerulosclerosis GERD (gastroesophageal reflux disease) Hyperlipidemia Hypertension LUQ pain Nausea & vomiting Tobacco abuse Past Family History Family History Brother Hypertension Father Hypertension Kidney disease Mother Hypertension Sister Hypertension Son Hypertension Family/Other Kidney disease Alport Syndrome Past Surgical History Surgical History H/O: hysterectomy History of appendectomy Hx of cholecystectomy Renal transplant, status post Social History Smoking Status: Former smoker tobacco type: cigarettes Do You Dip or Chew Tobacco: No Hx Alcohol Use: No substance use type: marijuana Physical Exam Vital Signs Last Vital Signs Temp 36.7 C 02/24/21 07:36 Pulse 64 02/24/21 07:36 Resp 18 02/24/21 07:36 BP 143/84 H 02/24/21 07:36 Pulse Ox 94 02/24/21 07:36 Testing Laboratory Results 02/23/21 06:44 02/23/21 06:44
--- NOTE | 2021-02-24 10:20 | History & Physical Bridge Note ---
Date of Service February 24, 2021 History & Physical Bridge Note I have examined the patient, reviewed the History & Physical and in the interval since the performance of the History & Physical I have noted the following changes of clinical significance: no changes noted. Minimal LUQ pain reported. NPO. No obstruction on abdominal series. PE: A&Ox3. Lungs CTA bilaterally. RRR. Abdomen soft, tender periumbilical and LUQ regions. A/P: Abdominal pain. 1. Proceed with EGD as ordered. 2. Further recommendations pending results of testing.
[2021-02-24] MEDS ORDERED: PROPOFOL IV EMULSION 10 MG/ML 20 ML VIAL IV ONE (11:00)
[2021-02-24] MEDS ORDERED: LIDOCAINE 2% 2 ML VIAL/AMP(20MG/ML) INFIL ONE (11:00)
--- NOTE | 2021-02-24 11:31 | GI REPORT ---
Patient Name: Kandace Keene Procedure Date: 02/24/2021 11:05 AM Date of : 1965 Admit Type: Inpatient Age: 55 Gender: Female Attending MD: Oswaldo Degroot MD Procedure: Upper GI endoscopy Providers: Oswaldo Degroot MD Referring MD: David Mckeon Indications: Nausea with vomiting Medicines: Monitored Anesthesia Care Complications: No immediate complications. Estimated blood loss: None. Estimated Blood Loss: Estimated blood loss: none. Procedure: Pre-Anesthesia Assessment: - Prior Anticoagulants: The patient has taken no previous anticoagulant or antiplatelet agents. - ASA Grade Assessment: II - A patient with mild systemic disease. After obtaining informed consent, the endoscope was passed under direct vision. Throughout the procedure, the patient's blood pressure, pulse, and oxygen saturations were monitored continuously. The Endoscope was introduced through the mouth, and advanced to the second part of duodenum. The upper GI endoscopy was accomplished without difficulty. The patient tolerated the procedure well. Findings: A medium-sized hiatal hernia was present. Diffuse mild inflammation characterized by erythema was found in the stomach. Biopsies were taken with a cold forceps for Helicobacter pylori testing. Estimated blood loss: none. Diffuse mucosal flattening was found in the second portion of the duodenum. Biopsies for histology were taken with a cold forceps for evaluation of celiac disease. Estimated blood loss: none. The duodenal bulb was normal. Impression: - Medium-sized hiatal hernia. - Gastritis. Biopsied. - Flattened mucosa was found in the duodenum, suspicious for celiac disease. Biopsied. - Normal duodenal bulb. Recommendation: - Return patient to [facility] for ongoing care. - Clear liquid diet today. advance as tolerated - f/u path results Osawldo Degroot MD 02/24/2021 11:30:31 AM This report has been signed electronically. Note Initiated On: 02/24/2021 11:05 AM Number of Addenda: 0 I attest to the content of the Intraoperative Record and orders documented therein, exceptions below {[id number]}
--- NOTE | 2021-02-24 12:23 | Anesthesiology Progress Note ---
Date of Service February 24, 2021 Anesthesia Post Procedure Vital Signs Vital Signs: Temp Pulse Pulse Resp BP BP Pulse Ox 02/24/21 11:58 86 18 176/83 H 96 02/24/21 11:43 85 16 155/82 H 96 02/24/21 11:30 85 16 128/68 98 02/24/21 10:44 36.6 C 62 16 177/82 H 98 02/24/21 07:36 36.7 C 64 18 143/84 H 94 02/23/21 23:00 36.9 C 68 20 168/80 H 94 02/23/21 15:35 36.9 C 67 18 153/96 H 96 Transfer of Care Handoff Completed per policy Notes Mental Status: alert / awake / arousable and participated in evaluation Patient Amnestic to Procedure: Yes Nausea / Vomiting: adequately controlled Pain: adequately controlled Airway Patency, RR, SpO2: stable & adequate BP & HR: stable & adequate Hydration State: stable & adequate Anesthetic Complications: no major complications apparent and Pt Satisfied with anesthetic care
--- NOTE | 2021-02-24 17:15 | Discharge Summary ---
Date of Service February 24, 2021 Admission HPI Per Admitting Provider Ms. Keene is a 55-year-old female with a history of focal segmental glomerulosclerosis s/p renal transplant on chronic immune suppression therapy who presents with a 3-4 week history of nausea and vomiting. She states that she has had persistent nausea and vomiting since she had her renal transplant in 2004 which she describes as vomiting 5-6 days per week. She states that this has worsened in the last few weeks to nausea and vomiting multiple times per day every day. She also endorses increased bloating and gas but states that there are times when she is unable to pass flatus. She has recently had epigastric abd ominal pain that is worsened by both eating and drinking. She states that it is difficult for her to keep food down but is frequently exacerbated by her eating food 'that she shouldn't eat.' She states that she often vomits up both her anti-rejection meds and Zofran. Her emesis has been non-bloody and does not have a coffee ground appearance. She has also had diarrhea in recent days that is mucinous but non-bloody. She was seen in the [facility] ED yesterday, 02/21, at which time a CT scan revealed, "mildly dilated loops of small bowel in the left upper quadrant with associated increased central mesenteric lymphadenopathy and mild fat stranding. No distinct transition point can be identified. This could represent an enteritis or other infectious/inflammatory process. A partial small bowel obstruction is difficult to entirely exclude." A lipase was done at this time that was normal. She was discharged home with Zofran. Today, she reports that her nausea has improved with Zofran and has not have any episodes of emesis today but continues with anorexia. She continues to have epigastric pain. Admission Exam Per Admitting Provider Physical Exam: Patient resting comfortably on exam. In no acute distress. Constitutional: WD/WN, vitals as above Respiratory: normal respiratory effort Auscultation: + wheezes Cardiovascular: RRR, no murmur, no edema Gastrointestinal (Abdomen): Inspection/Auscultation: abdomen normal to inspection and normal bowel sounds; abdomen not distended Percussion/Palpation: + abdomen tender (epigastric region) and abdomen soft; no guarding Skin: no rashes, warm and dry Psychiatric: A+Ox3, euthymic affect Principal Diagnosis nausea/vomiting Discharge Exam GENERAL: No acute distress. Well developed and well nourished. Vital signs reviewed as above. A/O x3. EYES: EOMI. Anicteric sclerae. HENT: Moist mucous membranes. RESPIRATORY: Clear to auscultation bilaterally. No wheezing, rales, or rhonchi. CARDIOVASCULAR: Regular rate and rhythm. No murmurs. ABDOMEN: Soft. Mild tenderness to deep palpation in epigastric region. Normal bowel sounds. EXTREMITIES: No edema. Non-tender. SKIN: Warm, dry. No rashes or lesions. NEUROLOGIC: No focal neurological deficits. CN II-XII grossly intact, but not individually tested. PSYCHIATRIC: Cooperative. Appropriate mood and affect. Discharge Data Allergies Allergy/AdvReac Type Severity Reaction Status Date / Time cyclophosphamide Allergy Intermediate URINARY Verified 02/22/21 12:49 RETENTION vancomycin Allergy Intermediate THROAT Verified 06/21/16 12:52 SWELLS, HIVES codeine AdvReac Mild N/V Verified 02/22/21 12:49 Consultations 02/22/21 16:04 Consult Gastroenterology Routine Procedures Performed Operation Date: 02/24/21 17:45 Actual Procedures p EGD Biopsy Cytology - Oswaldo Degroot MD Hospital Course (1) Nausea & vomiting: Ms. Keene is a 55-year-old female with a history of focal segmental glomerulosclerosis s/p renal transplant with a history of acute on chronic nausea and vomiting. N/V secondary to Gastritis: - EGD performed 02/24/21 showing evidence of gastritis, medium-sized hiatal hernia, and suspicion for celiac disease. - Continue Zofran for symptomatic relief of nausea/vomiting. - Increase home Pepcid from 20mg po daily to 20mg po BID x 1 week. Then resume Pepcid 20mg po daily. - Add Protonix 20mg po BID x1 month. - Pending H. pylori, if positive, begin triple therapy. - Patient started on CLD and ADAT after EGD. - Patient to f/u with GI in 1 week. Suspicion for Celiac Disease - Discussed trial gluten-free diet pending results of biopsy from EGD - Patient educate about diet - GI f/u as noted above Hyperlipidemia - Continue fenofibrate per home regimen. Hypertension: - Continue losartan per outpatient regimen. COPD (chronic obstructive pulmonary disease): - Continue Ventolin per outpatient regimen. Focal segmental glomerulosclerosis: - Continue tacrolimus and mycophenolate per outpatient regimen. 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 You were evaluated by GI and had an upper endoscopy performed during hospitalization. During this procedure, they noted a medium-sized hiatal hernia, gastritis (which we described as the "brush burn" in the stomach), and findings consistent with celiac disease. Samples were taken and are pending; you should follow up with GI in 1 week. We are also starting you on Pepcid 20mg by mouth twice a day for 1 week (then resume your once a day for the Pepcid) and Pantoprazole 20mg by mouth twice a day for 1 month. You can advance your diet as tolerated; as discussed, you may want to try to limit the amount of gluten in your diet until your GI appointment for further recommendations based on the pathology that is pending. You have a hospital follow up scheduled with Dr. Morales (who works in your PCP, Charlene Lott's, office and was part of the team that cared for you in the hospital), on Sunday, March 02, 2021 at 2:10 pm. Please return to the ER if you have any worsening or concerning symptoms including inability to tolerate food intake. Pending Studies at Discharge: Yes Studies:: GI biopsy results Stand-Alone Forms: My [employer], Smoking Cessation Medications and DC Order Prescriptions: New pantoprazole 20 mg tablet,delayed release (DR/EC) 20 mg PO BID 30 Days Qty: 60 RF: 0 Continued AMLODIPINE BESYLATE (NORVASC) 10 MG tablet 10 mg PO QPM Qty: 0 RF: 0 Aspirin Enteric Coated (Ecotrin Or Generic) 81 MG tablet 81 mg PO QAM Qty: 0 RF: 0 CALCIUM CARBONATE-VITAMIN D (OS-DUANE 500 PLUS D) 1 TAB tablet 2 tabs PO QAM Qty: 0 RF: 0 CLONAZEPAM (KLONOPIN) 0.5 MG tablet 0.5 mg PO TID Qty: 0 RF: 0 FENOFIBRATE (TRICOR) 54 MG tablet 54 mg PO QAM Qty: 0 RF: 0 LOSARTAN POTASSIUM (COZAAR) 25 MG tablet 25 mg PO QPM Qty: 0 RF: 0 TACROLIMUS (PROGRAF) 1 MG capsule 1 mg PO BID Qty: 0 RF: 0 Albuterol (Ventolin) inhaler 2 puff Inhalation QID PRN (Reason: Shortness of Breath) 5 Days Qty: 0 RF: 0 FERROUS SULFATE 325 MG tablet 1 tab PO QPM Qty: 0 RF: 0 MYCOPHENOLATE MOFETIL (CELLCEPT) 250 MG capsule 5 cap PO BID Qty: 0 RF: 3 Changed Famotidine (Pepcid) 20 MG tablet 20 mg PO BID 7 Days Qty: 0 RF: 0 Discharge Orders: Discharge Order (Routine); Ordered 02/24/21 Ordered By: Disha Morales Admission Data Admit Date/Time: 02/22/21 11:03 Attending Provider: David Mckeon Admit Provider: David Mckeon Primary Care Provider: Ayah Lott Other Providers: Oswaldo Degroot Other Interventions: Discharge Summary Assessment (RN) Last Done: 02/24/21 18:39 Supervising Physician Co-Signing Physician Notes I personally examined the patient and verified all patel points of history and exam, discussed case, and agree with decision making with Dr Morales Feeling better. Would like to go home. Discussed EGD findings and next steps. Vitals noted, in general she is awake and alert pleasant no distress. HEENT normocephalic atraumatic mucous membranes moist. Breathing unlabored no accessory muscle use good effort. Skin shows no rashes no pallor or icterus. Neuro shows no focal deficits. Intractable nausea vomiting and abdominal painnow tractable, and stable for home. Gastritis will be treated with twice daily PPI, given that she was already on daily PPI, we will add an H2 additionally for a week. Outpatient follow-up. In regards to her chronic GI issues, if she does not fact have celiac disease, which the EGD suggest, that may certainly play a large role if not the entire role. Await biopsies, outpatient follow-up, celiac diet if positive, further work-up if negative. Stable for home, otherwise as above Resident Activity Tracking Resident Involvement: Resident Care Provided Care Provided: Adult [facility] Medicine
--- NOTE | 2021-02-24 19:51 | Billing Data ---
Date of Service February 24, 2021 Coding Level of Care Code 61898 OBS Care - Discharge
== END 2021-02-24 18:30 | disposition home or self-care (01) ==
LOC: 2W → 2N 02-23 05:08

== ENCOUNTER 2025-03-30 14:40 | Inpatient (IN) ==
--- NOTE | 2025-03-30 15:33 | XRay Report ---
XR chest 1V portable CLINICAL HISTORY: Cough. Shortness of breath. COMPARISON STUDY: Chest CT July 08, 2013. Chest radiograph February 23, 2021. FINDINGS: There is no pneumothorax. A small right pleural effusion is noted. Mild interstitial thicke shani is present. Mild right hilar prominence is noted. The heart is mildly enlarged. There are mild b ibasilar opacities. IMPRESSION: 1. Cardiomegaly. Interstitial thickening suggestive of mild pulmonary edema. 2. Small right pleural effusion. Mild bibasilar opacities which favor atelectasis. Radiographic follo w-up to ensure resolution is recommended. 3. Bilateral hilar prominence, likely related to pulmonary vessels. This can also be assessed on foll ow-up radiographs. ACT 112: Negative or not required by law. Electronically signed by: Eber Ibarra M.D. 03/30/2025 3:31 PM
--- NOTE | 2025-03-30 15:51 | Emergency Department Note ---
Impression & Plan Acute dyspnea, CHF (congestive heart failure), Non-ST elevation [place] (NSTEMI), Pulmonary edema, Elevated brain natriuretic peptide (BNP) level, Hypomagnesemia ED Provider Note HISTORY OF PRESENT ILLNESS: Patient is a 59-year-old female presenting with shortness of breath and headache. Patient was just discharged from [facility] after being admitted for bacterial meningitis growing Streptococcus pneumoniae. Patient reportedly was discharged on 03/17/2025. She received her last dose of outpatient IV Rocephin through her midline for treatment of her infection on 03/26/2025. Patient reportedly has been "going downhill" ever since. Grain Farmworker at bedside reports the patient has been very weak and having difficulties getting around. Patient has been complaining of a persistent headache despite taking her Oxy IR that was prescribed to her. She has been nauseous. No measured fevers at home, but she reported has had "low-grade fevers." Patient is also complaining of shortness of breath. This started 4 days ago and has gotten progressively worse. She was visited by home health today who sent to the patient to the emergency department due to "it sounds like she has pneumonia." Patient has had a cough that has been productive of white-green sputum. Patient was on heparin injections while inpatient, but she is not currently on any anticoagulation or antiplatelet therapy. Patient reports feeling short of breath both at rest and with exertion. Denies any chest pain. Denies any numbness, tingling or focal weakness in her extremities. Denies any notable rashes. Grain Farmworker reports that they tried calling her [facility] doctors but were unable to get in touch with them and because of her insurance she is not able to go to [facility] so they brought her here for assessment. ROS: as above PHYSICAL EXAM: Constitutional: Patient appears in no acute distress. HENT: Head: Normocephalic and atraumatic. Eyes: EOMI, PERRL Mouth/Throat: Mucous membranes moist. Neck: Trachea midline. Neck supple. Cardiovascular: RRR, No murmurs, rubs or gallops. Intact distal pulses. Pulmonary/Chest: No respiratory distress. Breath sounds clear and equal bilaterally. Coarse breath sounds bilaterally. Abdominal: Abdomen soft, no tenderness, rebound or guarding. Musculoskeletal: No edema, tenderness or deformity noted. Skin: Warm and dry. No rash, erythema, pallor or cyanosis Psychiatric: Appropriate mood and affect for situation. Neurological: Alert and keenly responsive. CN II-XII grossly intact, moving all extremities equally and fully. MDM: - Vitals signs showed hypertension and tachycardia. - History obtained via patient. History as above. - Chronic conditions affecting care: renal transplant (in 2004 on Tac/mycophenolate); GERD; HTN; HLD; depression; COPD - Differential diagnoses include, but are not limited to: Congestive heart failure; acute coronary syndrome; COPD/asthma exacerbation; pulmonary edema; pulmonary embolism; pneumonia; pneumothorax; viral syndrome - Order placed for continuous cardiac monitoring. At this time, monitor showed rate of 96 bpm with normal sinus rhythm, per my interpretation. - External medical records reviewed. Discharge summary from [facility] dated 03/17/2025 was reviewed. Patient was admitted at that time for altered mental status and was found to have bacterial meningitis due to Streptococcus pneumonia. Patient reportedly was sick for about 3 days prior to presentation to the ER. - EKG image interpreted by myself showed normal sinus rhythm. Rate 91 bpm. QT 392. Not have a right bundle branch block. Also noted to have some ST depressions in leads V4 through V6. Last EKG in our system to compare to was in 2012 and does not show these changes. - Laboratory workup interpreted by myself showed leukopenia (WBC 4.58); new anemia (Hgb 8.7 - baseline in 2020 in our system was 12.7); normal PT/INR; HOWARD (Cr 2.28); hypocalcemia (Ca 8.5); hypomagnesemia (Mg 1.1); elevated troponin (225.0); elevated BNP (1035); normal procalcitonin; normal lactate - [facility] documentation showed that the patient had a hemoglobin of 10.3 on 03/16/2025. She also was noted to have a creatinine of 2.2 and a BUN of 69. - CXR image reviewed by myself showed some pulmonary vascular congestion, per my interpretation. Radiology notes cardiomegaly with interstitial thickening suggestive of mild pulmonary edema. Noted to have a small right pleural effusion. - Given 2g IV magnesium for electrolyte replacement. - Blood cultures obtained - UA ordered - Patient's symptoms likely secondary to CHF. No echo noted in our system. - Patient givne 324 mg Po aspirin for her NSTEMI. Discussed case with injection molding supervisor on-call, Dr. Kenny, at 18:15, given patient's EKG changes and elevated troponin. He recommended treating for heart failure for now. Recommended holding off on treating for ACS unless the patient's clinical picture changes. - Discussion was had with case resource manager about patient's case and need for admission - Hospitalist, Dr. Khoury, consulted for admission - [facility] ASSESSMENT AND PLAN: Diagnosis: acute dyspnea; CHF; pulmonary edema; hypomagnesemia; NSTEMI; elevated BNP Plan: admit Past Med/Surg History Problem List (Updated 03/30/25 @ 18:30 by Erinn Higgins MD) Hypomagnesemia (Acute) Elevated brain natriuretic peptide (BNP) level (Acute) Pulmonary edema (Acute) Non-ST elevation [place] (NSTEMI) (Acute) CHF (congestive heart failure) (Acute) Acute dyspnea (Acute) Gastritis Hyperlipidemia (Acute) Tobacco abuse (Acute) Hypertension (Acute) GERD (gastroesophageal reflux disease) (Acute) COPD (chronic obstructive pulmonary disease) (Acute) Focal segmental glomerulosclerosis (Acute) Nausea & vomiting (Acute) LUQ pain Depression (Acute) Surgical History H/O: hysterectomy Hx of cholecystectomy History of appendectomy Renal transplant, status post Family History Brother Hypertension Father Hypertension Kidney disease Mother Hypertension Sister Hypertension Son Hypertension Family/Other Kidney disease [place] Syndrome Social History Smoking Status: Current every day smoker Tobacco Type: Cigarettes Age Quit Using Tobacco: 53; Second Hand Exposure: Yes; Do You Dip or Chew Tobacco: No; Hx Alcohol Use: No Preferred Language: Bermudian Communication Ability: Effective Director Epidemiology Required: No Beliefs That Will Affect Care: None Current Living Situation: Spouse Feels Safe at Home: Yes Assistive Devices: None Allergies Allergies Allergy/AdvReac Type Severity Reaction Status Date / Time cyclophosphamide Allergy Intermediate URINARY Verified 03/30/25 17:22 RETENTION vancomycin Allergy Intermediate THROAT Verified 03/30/25 17:22 SWELLS, HIVES codeine AdvReac Mild N/V Verified 03/30/25 17:22 Home Meds Home Medications Medication Instructions Recorded Confirmed acetaminophen 500 mg tablet 500 mg PO Q6H PRN Pain 03/30/25 03/30/25 allopurinol 100 mg tablet 100 mg PO HS 03/30/25 03/30/25 amlodipine 5 mg tablet 5 mg PO HS 03/30/25 03/30/25 clonazepam 0.5 mg tablet 0.5 mg PO HS 03/30/25 03/30/25 famotidine 20 mg tablet 20 mg PO HS 03/30/25 03/30/25 loratadine 10 mg tablet (Allergy 1 mg PO Q OTHER DAY 03/30/25 03/30/25 Relief (loratadine)) losartan 100 mg tablet 100 mg PO QAM 03/30/25 03/30/25 metoprolol tartrate 25 mg tablet 25 mg PO BID PRN Heart Palpitations 03/30/25 03/30/25 montelukast 10 mg tablet 10 mg PO QAM 03/30/25 03/30/25 mycophenolate sodium 180 mg 540 mg PO Q12H 03/30/25 03/30/25 tablet,delayed release oxycodone 5 mg tablet 5 mg PO Q4H PRN Moderate-Severe 03/30/25 03/30/25 Pain pantoprazole 40 mg tablet,delayed 40 mg PO QAM 03/30/25 03/30/25 release risperidone 0.5 mg tablet 0.5 mg PO HS 03/30/25 03/30/25 sertraline 100 mg tablet 100 mg PO QAM 03/30/25 03/30/25 spironolactone 25 mg tablet 12.5 mg PO QAM 03/30/25 03/30/25 tacrolimus 1 mg capsule, 2 mg PO Q12H 03/30/25 03/30/25 immediate-release Results & Data (ED) Vital Signs Vital Signs - 24 hr 03/30/25 14:45 03/30/25 15:20 03/30/25 15:33 Temperature 36.8 C Temperature Source Temporal Artery Scan Pulse Rate 96 H 96 H Pulse Rate [Apical] Pulse Rhythm Regular Respiratory Rate 20 16 Respiratory Effort / Characteristics Non-Labored Respiratory Depth Normal Blood Pressure 203/96 H Blood Pressure [Left Arm] Blood Pressure Mean 131 Blood Pressure Mean [Left Arm] Pulse Oximetry 97 91 91 Oxygen Delivery Method Room Air Room Air Room Air Sepsis Recent Fever Within 48 Hours No Sepsis New/Unexplained Change in Mental Status No Sepsis Action Taken by Nursing No Action Required 03/30/25 16:00 03/30/25 16:15 Temperature Temperature Source Pulse Rate 96 H Pulse Rate [Apical] 96 H Pulse Rhythm Respiratory Rate 16 Respiratory Effort / Characteristics Non-Labored Spontaneous Respiratory Depth Normal Blood Pressure Blood Pressure [Left Arm] 186/96 H Blood Pressure Mean Blood Pressure Mean [Left Arm] 126 Pulse Oximetry 91 Oxygen Delivery Method Room Air Sepsis Recent Fever Within 48 Hours Sepsis New/Unexplained Change in Mental Status Sepsis Action Taken by Nursing Laboratory Data 03/30/25 15:22 03/30/25 15:22 Lab Results 03/30/25 03/30/25 Range/Units 15:22 16:32 WBC 4.58 L (4.8-10.8) K/ul RBC 2.86 L (4.20-5.40) M/uL Hgb 8.7 L (12.0-16.0) g/dl Hct 27.6 L (37.0-47.0) % MCV 96.5 (80.0-100.0) fL MCH 30.4 (25.0-34.0) pg MCHC 31.5 L (32.0-36.0) g/dL RDW Std Deviation 51.4 H (36.4-46.3) fL RDW Coeff of Deepali 14.8 H (11.5-14.5) % Plt Count 277 (130-400) K/uL MPV 11.1 (9.4-12.4) fL Immature Gran % (Auto) 0.7 % Neut % (Auto) 67.7 % Lymph % (Auto) 19.4 % [place] % (Auto) 8.7 % Eos % (Auto) 2.2 % Baso % (Auto) 1.3 % Neut # (Auto) 3.10 (1.40-6.50) K/uL Lymph # (Auto) 0.89 L (1.20-3.40) K/uL [place] # (Auto) 0.40 (0.11-0.59) K/uL Eos # (Auto) 0.10 (0.00-0.50) K/uL Baso # (Auto) 0.06 (0.00-0.20) K/uL Immature Gran # (Auto) 0.03 (0.01-0.20) K/uL PT 11.2 (9.0-12.0) Seconds INR 1.0 (0.9-1.1) APTT 28 (21-31) Seconds PTT Ratio 1.0 Sodium 142 (136-145) mmol/L Potassium 4.3 (3.5-5.1) mmol/L Chloride 116 H (98-107) mmol/L Carbon Dioxide 18 L (21-32) mmol/L Anion Gap 8 (3-11) BUN 35 H (6-23) mg/dl Creatinine 2.28 H (0.6-1.2) mg/dl Est Cr Clr Drug Dosing 25.5 ml/min eGFR 23.99 BUN/Creatinine Ratio 15.4 (10-20) Glucose 106 H (70-99(Fasting)) mg/dl Lactate 0.5 (0.4-2.0) mmol/L Calcium 8.5 L (8.6-10.3) mg/dl Magnesium 1.1 L (1.7-2.4) mg/dl Total Bilirubin 0.4 (0.2-1.0) mg/dl AST 8 L (13-39) U/L ALT 7 (7-52) U/L Alkaline Phosphatase 120 H (34-104) U/L Troponin I High Sens 225.0 H* (0-14) pg/ml B-Natriuretic Peptide 1035 H (0-100) pg/ml Total Protein 6.1 (6.0-8.3) gm/dl Albumin 3.2 L (3.4-5.0) gm/dl Globulin 2.9 (2.5-4.0) gm/dl Albumin/Globulin Ratio 1.1 (0.9-2) Procalcitonin 0.27 (0-0.5) ng/ml Administered Medications Magnesium Sulfate/Dextrose (Magnesium Sulfate / D5w) 1 gm in 100 mls @ 100 mls/hr IV Q1H MYRIAM Stop: 03/30/25 19:35 Last Admin: 03/30/25 17:41 Dose: 100 mls/hr Documented By: CAP Discontinued Medications Aspirin (Aspirin Chew 324 Mg) 324 mg PO NOW STA Stop: 03/30/25 17:38 Last Admin: 03/30/25 17:41 Dose: 324 mg Documented By: SELAM Sodium Chloride (Nss) 1,000 mls @ 999 mls/hr IV .Q1H1M ONE Stop: 03/30/25 17:38 Last Infusion: 03/30/25 18:14 Dose: Infused Documented By: Admin: 03/30/25 16:52 Dose: 999 mls/hr Documented By: INGRIS Sodium Chloride (Nss) 500 mls @ 999 mls/hr IV .Q31M ONE Stop: 03/30/25 17:08 Last Infusion: 03/30/25 18:14 Dose: Infused Documented By: Admin: 03/30/25 16:53 Dose: 999 mls/hr Documented By: INGRIS Imaging Data Radiologist's Impression: Chest X-Ray 03/30/25 14:48 XR chest 1V portable CLINICAL HISTORY: Cough. Shortness of breath. COMPARISON STUDY: Chest CT July 08, 2013. Chest radiograph February 23, 2021. FINDINGS: There is no pneumothorax. A small right pleural effusion is noted. Mild interstitial thickening is present. Mild right hilar prominence is noted. The heart is mildly enlarged. There are mild bibasilar opacities. IMPRESSION: 1. Cardiomegaly. Interstitial thickening suggestive of mild pulmonary edema. 2. Small right pleural effusion. Mild bibasilar opacities which favor atelectasis. Radiographic follow-up to ensure resolution is recommended. 3. Bilateral hilar prominence, likely related to pulmonary vessels. This can also be assessed on follow-up radiographs. ACT 112: Negative or not required by law. Electronically signed by: Eber Ibarra M.D. 03/30/2025 3:31 PM Discharge Plan Visit Data Chief Complaint: Illness Stated Complaint: COUGHING,VOMITING,HOME NURSE SAID PNEUMONIA ED Provider: Erinn Higgins Discharge Problem: Acute dyspnea, CHF (congestive heart failure), Non-ST elevation [place] (NSTEMI), Pulmonary edema, Elevated brain natriuretic peptide (BNP) level, Hypomagnesemia Condition: Serious Forms Stand Alone Forms: [employer] Prescriptions Prescriptions: No Action clonazepam 0.5 mg tablet 0.5 mg PO HS Rx Instructions: Pt takes 0.5mg by mouth during the day IF needed sertraline 100 mg tablet 100 mg PO QAM amlodipine 5 mg tablet 5 mg PO HS allopurinol 100 mg tablet 100 mg PO HS acetaminophen [Tylenol Ex Str Rapid Release] 500 mg Tablet 500 mg PO Q6H PRN (Reason: Pain) spironolactone 25 mg tablet 12.5 mg PO QAM famotidine 20 mg tablet 20 mg PO HS pantoprazole 40 mg tablet,delayed release (DR/EC) 40 mg PO QAM montelukast 10 mg tablet 10 mg PO QAM losartan 100 mg tablet 100 mg PO QAM tacrolimus 1 mg capsule 2 mg PO Q12H loratadine [Allergy Relief (loratadine)] 10 mg tablet 1 mg PO Q OTHER DAY risperidone 0.5 mg tablet 0.5 mg PO HS oxycodone 5 mg tablet 5 mg PO Q4H PRN (Reason: Moderate-Severe Pain) metoprolol tartrate 25 mg tablet 25 mg PO BID PRN (Reason: Heart Palpitations) mycophenolate sodium 180 mg tablet,delayed release (DR/EC) 540 mg PO Q12H Referrals Referrals: Andi Tejada MD [Primary Care Provider] -
[2025-03-30 16:12] LABS: Hematocrit (blood only) 27.6 % (37.0-47.0); Hemoglobin 8.7 g/dl (12.0-16.0); Immature Granulocytes # (auto) 0.03 K/uL (0.01-0.20); Immature Granulocytes % (auto) 0.7 %; Mean Corpuscular Hemoglobin 30.4 pg (25.0-34.0); Mean Corpuscular Volume 96.5 fL (80.0-100.0); Platelet Count 277 K/uL (130-400); RDW Standard Deviation 51.4 fL (36.4-46.3); Red Blood Count 2.86 M/uL (4.20-5.40); White Blood Count 4.58 K/ul (4.8-10.8)
[2025-03-30 16:33] LABS: Alanine Aminotransferase 7.0 U/L (7-52); Albumin Globulin Ratio 1.1 (0.9-2); Alkaline Phosphatase 120.0 U/L (34-104); Anion Gap 8.0 (3-11); Bilirubin,Total 0.4 mg/dl (0.2-1.0); Blood Urea Nitrogen 35.0 mg/dl (6-23); Calcium 8.5 mg/dl (8.6-10.3); Carbon Dioxide 18.0 mmol/L (21-32); Chloride 116.0 mmol/L (98-107); Creatinine Clr Calc Pharmacy 25.5 ml/min; Globulin 2.9 gm/dl (2.5-4.0); Glucose 106.0 mg/dl (70-99(Fasting)); Magnesium 1.1 mg/dl (1.7-2.4); Potassium 4.3 mmol/L (3.5-5.1); Sodium 142.0 mmol/L (136-145); Total Protein 6.1 gm/dl (6.0-8.3)
[2025-03-30 16:42] LABS: INR 1.0 (0.9-1.1); Partial Thromboplastin Time 28 Seconds (21-31); Prothrombin Time 11.2 Seconds (9.0-12.0)
[2025-03-30] MEDS: SODIUM CHLORIDE 0.9% 1,000 ML IV ONE (16:52)
[2025-03-30] MEDS: SODIUM CHLORIDE 0.9% 500 ML IV ONE (16:53)
[2025-03-30] MEDS: ASPIRIN CHEW 324 MG PO STA (17:41)
[2025-03-30] MEDS: MAGNESIUM SULFATE / D5W 1 GM/100 ML BAG IV SCH ×2 (17:41→21:55)
--- NOTE | 2025-03-30 18:15 | History & Physical Report ---
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 She completed her IV ceftriaxone 03/26 and reports ever since then has been feeling more short of breath with a cough productive of small amounts of green sputum and worsening generalized weakness along with bilateral left greater than right leg swelling. She has had a generalized headache ever since the beginning of her previous hospitalization and is taking oxycodone which she thinks makes it worse. She has also had nausea and some vomiting (which she says is fairly chronic for her) as well as multiple episodes of diarrhea each day up to 4-5 times, nonbloody. She reports low-grade fevers at home to 99.3 degrees. She was visited by her home health nurse today who examined her and thought it sounded like she had pneumonia and sent her to the hospital. In the ED, her troponin was elevated at [address] depressions in the lateral leads with no ECG to compare to. She was hypertensive and with sinus tachycardia. Her anemia was worse than it had been based on discharge records from [facility]-hemoglobin was 10.3 on 03/17 and now down to 8.7. Her creatinine was stable at 2.2. Her CXR here showed a small right pleural effusion and pulmonary edema. Her magnesium level was also severely low at 1.1. In the ED, she was given 2 g of IV magnesium and 1.5 L of normal saline. She is admitted with acute on chronic HFpEF, possible NSTEMI, and acute respiratory with hypoxemia #Acute on chronic HFpEF/HTN/RBBB/elevated troponin/acute respiratory failure with hypoxemia-with elevated BNP, CXR with findings of CHF, increasing shortness of breath, supplemental O2 requirement, wheezing, suspect combination of acute on chronic HFpEF plus COPD exacerbation. Repeat troponin starting to trend downward, patient without chest pain despite ST depressions in lateral leads on ECG. Blood pressures are quite elevated, with peripheral edema and pulmonary edema on CXR - Admit to medical floor with telemetry - Give Lasix 40 Mg IV x 1 and reassess renal function in the morning before giving further IV Lasix - Continue home spironolactone, amlodipine, losartan - Check echo - Consult cardiology for elevated troponin, abnormal ECG, CHF - Daily weights, strict I's and O's - Given asymmetric leg swelling and recent critical care hospital stay, check LLE venous Doppler to rule out DVT #Hypomagnesemia/diarrhea/nausea/vomiting-magnesium severely low at 1.1 likely from GI losses and poor p.o. intake. With recent 2-week course of ceftriaxone now completed with 4-5 episodes of loose stools daily, no abdominal pain but having low-grade fevers - Replace with 4 g total of IV magnesium and follow magnesium level in the morning - Check C. difficile in the stool - Clear liquids diet only for now and advance as tolerated if nausea/vomiting improves - IV Zofran as needed #COPD exacerbation/current smoker/acute respiratory failure with hypoxemia-with diffuse wheezing and ongoing smoking. - Start Doxy 100 mg IV twice daily - DuoNebs 4 times daily scheduled - Avoid steroids right now due to immunocompromised state - Continue supplemental O2 and wean off as tolerated to keep pulse ox greater than 90% #CKD stage IV/history of renal transplant/FSGS-it seems her creatinine is around her baseline at 2.2, with failing renal transplant. With metabolic acidosis, non-anion gap. She was started on sodium bicarbonate tablets during her recent admission at [facility] but she was thinking that those were making her have diarrhea so she stopped them. Serum bicarbonate is low at 18 - follow BMP and resume sodium bicarbonate if recommended by nephrology - Consult nephrology - Check tacrolimus level and continue current close 2 Mg p.o. twice daily - Continue mycophenolate home dose #Anemia/leukopenia-hemoglobin low at 8.2-baseline from labs at [facility] was Hgb 10.3 in 03/17. Likely anemia of chronic disease. No bleeding from anywhere that she has noted. - Check iron studies, B12, folate, TSH in the morning - Follow CBC #Recent bacterial meningitis/headache-streptococcal pneumoniae grew out of cultures-patient reports she had pneumonia and bacterial meningitis. She completed a 2-week course of IV ceftriaxone at home on 03/26. Continues to have ongoing daily headache perhaps worsened by oxycodone - Tylenol only as needed for pain, avoid opioids as may be making things worse - No further antibiotics for this needed at this time #Anxiety/depression-no acute issues - Continue home Risperdal, sertraline, clonazepam #GERD-no acute issues - Continue PPI, Pepcid #Gout-continue allopurinol #Allergies-continue montelukast, Claritin DVT prophylaxis-heparin SQ 5000 twice daily Disposition-admit to medical floor with telemetry History of Present Illness Chief Complaint: Shortness of breath Primary Care Provider: Andi Tejada MD This patient is a 59-year-old female with a history of renal transplant se condary to FSGS with chronic GN, RBBB, HTN, COPD, HLD, PVCs, GERD, anxiety/depression, gout, who was recently admitted and discharged from [facility] on 03/17 for Streptococcus pneumoniae bacterial meningitis. She completed her IV ceftriaxone 03/26 and reports ever since then has been feeling more short of breath with a cough productive of small amounts of green sputum and worsening generalized weakness along with bilateral left greater than right leg swelling. She has had a generalized headache ever since the beginning of her previous hospitalization and is taking oxycodone which she thinks makes it worse. She has also had nausea and some vomiting (which she says is fairly chronic for her) as well as multiple episodes of diarrhea each day up to 4-5 times, nonbloody. She reports low-grade fevers at home to 99.3 degrees. She was visited by her home health nurse today who examined her and thought it sounded like she had pneumonia and sent her to the hospital. In the ED, her troponin was elevated at [address] depressions in the lateral leads with no ECG to compare to. She was hypertensive and with sinus tachycardia. Her anemia was worse than it had been based on discharge records from [facility]-hemoglobin was 10.3 on 03/17 and now down to 8.7. Her creatinine was stable at 2.2. Her CXR here showed a small right pleural effusion and pulmonary edema. Her magnesium level was also severely low at 1.1. In the ED, she was given 2 g of IV magnesium and 1.5 L of normal saline. She is admitted with acute on chronic HFpEF, possible NSTEMI Allergies Allergy/AdvReac Type Severity Reaction Status Date / Time cyclophosphamide Allergy Intermediate URINARY Verified 03/30/25 17:22 RETENTION vancomycin Allergy Intermediate THROAT Verified 03/30/25 17:22 SWELLS, HIVES codeine AdvReac Mild N/V Verified 03/30/25 17:22 Home Medications Medication Instructions Recorded Confirmed Type acetaminophen 500 mg tablet 500 mg PO Q6H PRN Pain 03/30/25 03/30/25 History allopurinol 100 mg tablet 100 mg PO HS 03/30/25 03/30/25 History amlodipine 5 mg tablet 5 mg PO HS 03/30/25 03/30/25 History clonazepam 0.5 mg tablet 0.5 mg PO HS 03/30/25 03/30/25 History famotidine 20 mg tablet 20 mg PO HS 03/30/25 03/30/25 History loratadine 10 mg tablet (Allergy 1 mg PO Q OTHER DAY 03/30/25 03/30/25 History Relief (loratadine)) losartan 100 mg tablet 100 mg PO QAM 03/30/25 03/30/25 History metoprolol tartrate 25 mg tablet 25 mg PO BID PRN Heart Palpitations 03/30/25 03/30/25 History montelukast 10 mg tablet 10 mg PO QAM 03/30/25 03/30/25 History mycophenolate sodium 180 mg 540 mg PO Q12H 03/30/25 03/30/25 History tablet,delayed release oxycodone 5 mg tablet 5 mg PO Q4H PRN Moderate-Severe 03/30/25 03/30/25 History Pain pantoprazole 40 mg tablet,delayed 40 mg PO QAM 03/30/25 03/30/25 History release risperidone 0.5 mg tablet 0.5 mg PO HS 03/30/25 03/30/25 History sertraline 100 mg tablet 100 mg PO QAM 03/30/25 03/30/25 History spironolactone 25 mg tablet 12.5 mg PO QAM 03/30/25 03/30/25 History tacrolimus 1 mg capsule, 2 mg PO Q12H 03/30/25 03/30/25 History immediate-release Past Med/Surg History Problem List (Updated 03/30/25 @ 19:29 by Karen Khoury MD) CKD (chronic kidney disease) stage 4, GFR 15-29 ml/min (HFpEF) heart failure with preserved ejection fraction Hypomagnesemia (Acute) Elevated brain natriuretic peptide (BNP) level (Acute) Pulmonary edema (Acute) Non-ST elevation RI (NSTEMI) (Acute) CHF (congestive heart failure) (Acute) Acute dyspnea (Acute) Gastritis Hyperlipidemia (Acute) Tobacco abuse (Acute) Hypertension (Acute) GERD (gastroesophageal reflux disease) (Acute) COPD (chronic obstructive pulmonary disease) (Acute) Focal segmental glomerulosclerosis (Acute) Nausea & vomiting (Acute) LUQ pain Depression (Acute) Surgical History H/O: hysterectomy Hx of cholecystectomy History of appendectomy Renal transplant, status post Family History Brother Hypertension Father Hypertension Kidney disease Mother Hypertension Sister Hypertension Son Hypertension Family/Other Kidney disease Alport Syndrome Social History Smoking Status: Current every day smoker Tobacco Type: Cigarettes Age Quit Using Tobacco: 53; Second Hand Exposure: Yes; Do You Dip or Chew Tobacco: No; Hx Alcohol Use: No Preferred Language: Salvadorean Communication Ability: Effective Can Repairer Required: No Beliefs That Will Affect Care: None Current Living Situation: Spouse Feels Safe at Home: Yes Assistive Devices: None Review of Systems Review of Systems: All systems reviewed & are unremarkable except as noted in HPI & below Physical Exam Constitutional: WD/WN, vitals as above Eyes: PERRL, conjunctivae normal, anicteric sclerae ENMT: external ear and nose normal, oropharynx normal Neck: trachea midline, no thyromegaly Respiratory: normal respiratory effort; no cough Auscultation: + crackles (At right base) and + wheezes (Diffusely) Cardiovascular: Rate/Rhythm: regular rate and regular rhythm Heart Sounds: no murmur Extremities: + edema (1+ pitting edema of the left leg to the knee bilaterally, trace on right) Chest (Breasts): Chest: normal inspection of chest Gastrointestinal (Abdomen): normal bowel sounds, soft, nontender, no hepatosplenomegaly Musculoskeletal: Extremities: extremities normal to inspection; no cyanosis and no clubbing Skin: no rashes, warm and dry Neurologic: moves all extremities and awake; no focal motor deficits Psychiatric: A+Ox3, euthymic affect Results & Data Results & Data Vital Signs (Past 12 Hours) Vital Signs Temp Pulse Pulse Resp BP BP Pulse Ox 03/30/25 16:15 96 H 03/30/25 16:00 96 H 16 186/96 H 91 03/30/25 15:33 91 03/30/25 15:20 96 H 16 91 03/30/25 14:45 36.8 C 96 H 20 203/96 H 97 O2 Del Method 03/30/25 16:15 03/30/25 16:00 Room Air 03/30/25 15:33 Room Air 03/30/25 15:20 Room Air 03/30/25 14:45 Room Air Laboratory Results CBC, PT/PTT/INR, BMP, lactate, magnesium, LFTs, troponin, BMP, procalcitonin reviewed Diagnostic Findings CXR image personally reviewed by me and agree with the following report: Chest X-Ray 03/30/25 14:48 XR chest 1V portable CLINICAL HISTORY: Cough. Shortness of breath. COMPARISON STUDY: Chest CT July 08, 2013. Chest radiograph February 23, 2021. FINDINGS: There is no pneumothorax. A small right pleural effusion is noted. Mild interstitial thickening is present. Mild right hilar prominence is noted. The heart is mildly enlarged. There are mild bibasilar opacities. IMPRESSION: 1. Cardiomegaly. Interstitial thickening suggestive of mild pulmonary edema. 2. Small right pleural effusion. Mild bibasilar opacities which favor atelectasis. Radiographic follow-up to ensure resolution is recommended. 3. Bilateral hilar prominence, likely related to pulmonary vessels. This can also be assessed on follow-up radiographs. ECG Additional Comments: ECG on 03/30/2025 at 1506 with normal sinus rhythm, rate 91, RBBB, T wave inversions in anterolateral leads and ST downsloping depressions in lateral leads Code Status & VTE Plan Code Status DNR/DNI VTE Prophylaxis Plan VTE Prophylaxis will be ordered: Yes PG Care Time/CCT Total # of Minutes Spent Total Time Spent with Patient: Total time spent is greater than 50% in coordination of care (as documented) at patient's floor/unit and/or counseling patient: Coding Level of Care Code 27963 INT INP/OBS CARE MIN Diagnoses (HFpEF) heart failure with preserved ejection fraction I50.30 Hypomagnesemia E83.42 CKD (chronic kidney disease) stage 4, GFR 15-29 ml/min N18.4 COPD (chronic obstructive pulmonary disease) J44.9
[2025-03-30 19:20] LABS: Appearance Urine Clear (Clear); Bacteria Urine Automated None Seen (None Seen); Cast Urine Automated 0-2 /lpf (0-2); Epithelial Cell Urine Auto 0-2 /hpf (0-2); Glucose Urine UA Negative (Negative); RBC Urine Automated 0-2 /hpf (0-2); WBC Urine Automated 0-5 /hpf (0-5)
--- NOTE | 2025-03-30 19:57 | Ultrasound Report ---
Clinical History: Edema Technique: Venous ultrasound evaluation was performed utilizing grayscale, color Doppler and wave form evaluation. Images were also obtained with and without compression Findings: The left common femoral, superficial femoral, popliteal, and visualized calf veins demonstrate normal anechoic lumens with full compressibility. Normal flow is seen on color Doppler images. Expected waveforms were produced with augmentation maneuvers Impression: No evidence of left leg deep venous thrombosis Electronically signed by Natanael Sheldon 03-30-2025 7:57 PM
[2025-03-30] MEDS: FUROSEMIDE 40 MG/4 ML VIAL IV ONE (19:58)
[2025-03-30] MEDS ORDERED: ONDANSETRON INJ 2 MG/ML 2 ML VIAL IV PRN (20:41)
[2025-03-30] MEDS: clonazePAM 0.5 MG TAB PO SCH (21:53)
[2025-03-30] MEDS: ACETAMINOPHEN 500 MG TAB PO STA (21:53)
[2025-03-30] MEDS: FAMOTIDINE 20 MG TAB PO SCH (21:53)
[2025-03-30] MEDS: HEPARIN SOD 5,000 UNIT/0.5 ML VIAL SQ SCH (21:54)
[2025-03-30] MEDS: DOXYCYCLINE HYCLATE 100 MG in DEXTROSE 5% MINI-B 100 ML IV ONE (21:55)
[2025-03-31] MEDS: MYCOPHENOLATE SODIUM 180 MG TAB PO SCH (00:05)
[2025-03-31] MEDS: TACROLIMUS 1 MG CAP PO SCH (00:06)
[2025-03-31] MEDS: ALBUT/IPRATROP 3MG/0.5MG NEB 3 ML VIAL NEB SCH (07:04)
[2025-03-31 08:52] LABS: Hematocrit (blood only) 27.1 % (37.0-47.0); Hemoglobin 8.8 g/dl (12.0-16.0); Immature Granulocytes # (auto) 0.02 K/uL (0.01-0.20); Immature Granulocytes % (auto) 0.5 %; Mean Corpuscular Hemoglobin 30.9 pg (25.0-34.0); Mean Corpuscular Volume 95.1 fL (80.0-100.0); Platelet Count 271 K/uL (130-400); RDW Standard Deviation 51.2 fL (36.4-46.3); Red Blood Count 2.85 M/uL (4.20-5.40); White Blood Count 4.41 K/ul (4.8-10.8)
[2025-03-31 09:07] LABS: Alanine Aminotransferase 7.0 U/L (7-52); Albumin Globulin Ratio 1.2 (0.9-2); Alkaline Phosphatase 114.0 U/L (34-104); Anion Gap 8.0 (3-11); Bilirubin,Total 0.3 mg/dl (0.2-1.0); Blood Urea Nitrogen 30.0 mg/dl (6-23); Calcium 8.7 mg/dl (8.6-10.3); Carbon Dioxide 18.0 mmol/L (21-32); Chloride 117.0 mmol/L (98-107); Creatinine Clr Calc Pharmacy 28.2 ml/min; Globulin 2.5 gm/dl (2.5-4.0); Glucose 111.0 mg/dl (70-99(Fasting)); Iron 34.0 mcg/dl (35-150); Magnesium 1.7 mg/dl (1.7-2.4); Potassium 4.2 mmol/L (3.5-5.1); Sodium 143.0 mmol/L (136-145); Total Iron Binding Cap Calc 186.0 mcg/dl (250-450); Total Protein 5.5 gm/dl (6.0-8.3); Transferrin 133.0 mg/dl (200-360); Transferrin (FE) Percent Satur 18.0 % (15-50)
[2025-03-31] MEDS: MONTELUKAST SODIUM 10 MG TABLET PO SCH (09:10)
[2025-03-31] MEDS: LOSARTAN POTASSIUM 50 MG TAB PO SCH (09:10)
[2025-03-31] MEDS: DOXYCYCLINE HYCLATE 100 MG in DEXTROSE 5% MINI-B 100 ML IV SCH (09:10)
[2025-03-31] MEDS: REMOVE NICODERM PATCH SCH (09:10)
[2025-03-31] MEDS: METOPROLOL TARTRATE 25 MG TAB PO SCH (09:10)
[2025-03-31] MEDS: SERTRALINE HCL 100 MG TABLET PO SCH (09:10)
[2025-03-31] MEDS: NICOTINE 14 MG/24 HR PATCH TD SCH (09:10)
[2025-03-31] MEDS: SPIRONOLACTONE 12.5 MG TAB PO SCH (09:10)
[2025-03-31 09:22] LABS: Thyroid Stimulating Hormone 0.729 uIu/ml (0.300-4.500)
--- NOTE | 2025-03-31 09:27 | Cardiology Consultation ---
Date of Consultation March 31, 2025 Assessment & Plan (1) (HFpEF) heart failure with preserved ejection fraction: (2) CKD (chronic kidney disease) stage 4, GFR 15-29 ml/min: (3) Elevated troponin: (4) Abnormal EKG: Plan PMHX: 1. Right bundle-branch block. 2. NML lV fxn echo 05/2023 3. Hypertension. 4. Negative DSE for ischemia, 08/2018. 5. Status post renal transplantation in 2004 at [place]. 6. Recurrence of her focal segmental glomerular sclerosis with her trans planted kidney (this was the cause for her initial transplantation as well). 7. COPD and ongoing tobacco abuse. 8. Palpitations most consistent with PVCs. 9. NML Carotids 05/[address] depressions and a mildly elevated troponin on admission. She is without any chest pain and her dyspnea is better as well as her troponin is trending down. Given her kidney disease, would hold off on invasive intervention at this time. She has multiple reasons for demand ischemia including acute illness, copd with hypoxia, fluid overload, and anemia. She has an elevated bnp and was given a dose of diuretic last evening. Would continue to diurese with nephrology's guidance who is onboard as well. Echo is pending. Doppler of lower extremities was negative for DVT. There may be a component of nephrotic syndrome to her edema given her high urine protein and low serum albumin. Her blood pressure is hypertensive and will hopefully improve with further diureses. Continue home blood pressure medications. Her magnesium was replaced and should continue to be followed and supplemented per the hospitalists. It was normal this morning as was her potassium. History of Present Illness Attending Physician: Karen Khoury MD History of Present Illness Ms. Keene presented to the ED for complaints of dyspnea and cough. She had recently been hospitalized at [facility] for a week for strep pneumoniae bacterial meningitis and completed her ceftriaxone 03/26. She notes that since then she has been dyspneic with edema in her lower extremities as well as having a headache ongoing since before admission to [place]. She has chronic n/v and has been experiencing non blood diarrhea. She had a low grade fever of 99 degrees. In the ED her HS troponin peaked at [address] depressions in the lateral leads, new from previous EKGs. RBBB has been seen on previous EKGs. She is anemic with hgb downtrending from 10.3 on 03/17 to 8.7 on admission She was hypertensive and with sinus tachycardia. Her creatinine was stable at 2.2. CXR showed a small right pleural effusion and pulmonary edema. Her magnesium level was also severely low at 1.1 and was replaced in the ED. BNP was 1035 and she was given a dose of IV furosmide. Today she feels like her breathing is better but she is overall feeling about 50% of her usual baseline. She denies any chest pain. SR on the monitor. Edema is better. Allergies Allergy/AdvReac Type Severity Reaction Status Date / Time cyclophosphamide Allergy Intermediate URINARY Verified 03/30/25 17:22 RETENTION vancomycin Allergy Intermediate THROAT Verified 03/30/25 17:22 SHERIF GAGNON codeine AdvReac Mild N/V Verified 03/30/25 17:22 Home Medications Medication Instructions Recorded Confirmed Type acetaminophen 500 mg tablet 500 mg PO Q6H PRN Pain 03/30/25 03/30/25 History allopurinol 100 mg tablet 100 mg PO HS 03/30/25 03/30/25 History amlodipine 5 mg tablet 5 mg PO HS 03/30/25 03/30/25 History clonazepam 0.5 mg tablet 0.5 mg PO HS 03/30/25 03/30/25 History famotidine 20 mg tablet 20 mg PO HS 03/30/25 03/30/25 History loratadine 10 mg tablet (Allergy 1 mg PO Q OTHER DAY 03/30/25 03/30/25 History Relief (loratadine)) losartan 100 mg tablet 100 mg PO QAM 03/30/25 03/30/25 History metoprolol tartrate 25 mg tablet 25 mg PO BID PRN Heart Palpitations 03/30/25 03/30/25 History montelukast 10 mg tablet 10 mg PO QAM 03/30/25 03/30/25 History mycophenolate sodium 180 mg 540 mg PO Q12H 03/30/25 03/30/25 History tablet,delayed release oxycodone 5 mg tablet 5 mg PO Q4H PRN Moderate-Severe 03/30/25 03/30/25 History Pain pantoprazole 40 mg tablet,delayed 40 mg PO QAM 03/30/25 03/30/25 History release risperidone 0.5 mg tablet 0.5 mg PO HS 03/30/25 03/30/25 History sertraline 100 mg tablet 100 mg PO QAM 03/30/25 03/30/25 History spironolactone 25 mg tablet 12.5 mg PO QAM 03/30/25 03/30/25 History tacrolimus 1 mg capsule, 2 mg PO Q12H 03/30/25 03/30/25 History immediate-release Patient History Surgical History H/O: hysterectomy Hx of cholecystectomy History of appendectomy Renal transplant, status post Family History Brother Hypertension Father Hypertension Kidney disease Mother Hypertension Sister Hypertension Son Hypertension Family/Other Kidney disease Alport Syndrome Social History Smoking Status: Current every day smoker Tobacco Type: Cigarettes Age Quit Using Tobacco: 53; Second Hand Exposure: Yes; Do You Dip or Chew Tobacco: No; Hx Alcohol Use: No Hx Substance Use: Yes Last Used Substance: Days (ago) Preferred Language: Maltese Communication Ability: Effective International Marketing Executive Required: No Beliefs That Will Affect Care: None Current Living Situation: Spouse Feels Safe at Home: Yes Safety Concerns: Feels Safe At This Time Assistive Devices: Denture - Upper and Oxygen - Continuous Review of Systems Review of Systems: All systems reviewed & are unremarkable except as noted in HPI & below Physical Exam Constitutional: + ill appearing Respiratory: normal respiratory effort Auscultation: + crackles Cardiovascular: Rate/Rhythm: regular rate and regular rhythm Heart Sounds: no murmur Extremities: + edema (lower extremities) Skin: no rashes, warm and dry Neurologic: moves all extremities and awake Psychiatric: Orientation: alert and oriented x 3 Affect: + depressed affect Results & Data Vital Signs (Past 12 Hours) Vital Signs Temp Pulse Pulse Resp BP Pulse Ox O2 Del Method 03/31/25 08:05 37.0 C 90 18 170/89 H 97 Nasal Cannula 03/31/25 07:04 104 H 18 92 Nasal Cannula 03/31/25 06:45 92 H 03/31/25 02:32 36.9 C 91 H 18 173/90 H 92 Nasal Cannula 03/30/25 23:13 37.2 C 104 H 18 184/77 H 93 Nasal Cannula 03/30/25 22:11 97 H O2 Flow Rate 03/31/25 08:05 3 03/31/25 07:04 3 03/31/25 06:45 03/31/25 02:32 2 03/30/25 23:13 2 03/30/25 22:11
[2025-03-31 09:28] LABS: Ferritin 280.9 ng/ml (8-388)
[2025-03-31 09:31] LABS: Folate (Folic Acid),Ser orPlas 20.26 ng/ml (>5.38)
[2025-03-31 09:32] LABS: Vitamin B12 847.0 pg/ml (180-914)
[2025-03-31] MEDS: FUROSEMIDE 40 MG/4 ML VIAL IV ONE (11:09)
[2025-03-31] MEDS ORDERED: Nursing to Pharmacy Communication SCH (14:15)
--- NOTE | 2025-03-31 14:52 | Electrocardiogram Report ---
Test Reason : Blood Pressure : */* mmHG Vent. Rate : 91 BPM Atrial Rate : 91 BPM P-R Int : 120 ms QRS Dur : 112 ms QT Int : 392 ms P-R-T Axes : 47 95 -13 degrees QTcB Int : 482 ms Normal sinus rhythm Right bundle branch block T wave abnormality, consider inferolateral ischemia Abnormal ECG Confirmed by Terrell Glass ([id number]) on 03/31/2025 2:51:57 PM Referred By: Confirmed By: Terrell Glass
--- NOTE | 2025-03-31 15:08 | Electrocardiogram Report ---
Test Reason : Blood Pressure : */* mmHG Vent. Rate : 96 BPM Atrial Rate : 96 BPM P-R Int : 124 ms QRS Dur : 112 ms QT Int : 394 ms P-R-T Axes : * 99 194 degrees QTcB Int : 497 ms Normal sinus rhythm Right bundle branch block Lateral infarct , age undetermined T wave abnormality, consider inferior ischemia Abnormal ECG When compared with ECG of 30-Mar-2025 15:06, (unconfirmed) Lateral infarct is now Present T wave inversion more evident in Lateral leads Confirmed by Terrell Glass ([id number]) on 03/31/2025 3:08:34 PM Referred By: REFERRED SELF Confirmed By: Terrell Glass
[2025-03-31 16:25] LABS: Cdiff Toxin B Gene (2yr or >) Negative Cdiff Gene (Neg)
--- NOTE | 2025-03-31 17:20 | Nephrology Consultation ---
Date of Consultation March 31, 2025 Assessment & Plan (1) Renal transplant, status post: Baseline creatinine 1.8-2.2 mg/dL. Continue tacrolimus and Myfortic per home Rx. Tacro trough pending. BP and volume status acceptable. Electrolytes normal. Renal diet. Medications are appropriate for kidney function. Repeat metabolic profile tomorrow AM. (2) Focal segmental glomerulosclerosis: Continue losartan per home Rx. Continue spironolactone as Rx. Urine protein will be quantified with 24 hour collection. (3) Pulmonary edema: Improving with diuretics. TTE pending. Low sodium diet. Continue furosemide to encourage negative fluid balance. Cardiology following. (4) Anemia: Denies any signs of bleeding. Monitor H/H with repeat labs in the AM. 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 Baseline creatine ~1.8-2.2 mg/dL. Kandace underwent living unrelated donor transplant at [facility] in 2004. She was maintained on PD for 2 years prior to transplant. Kandace has followed in the [facility] locally with Dr. Vida Khan. She is switching to [facility] due to recent changes in insurance coverage. A3 (non-nephrotic) proteinuria noted for several years. Transplant biopsy completed in 2016 reporting secondary FSGS (3/ glomeruli global sclerosis; mild IFTA). Creatinine 1.6 mg/dL in December 2023. IS includes tacrolimus and Myfortic. DSA has been negative. Kandace was admitted to [facility] last month with Streptococcus pneumoniae bacterial meningitis. IV ceftriaxone completed at home on March 26. Kandace reports diarrhea for a couple weeks following therapy. She also describes persistent fatigue and dyspnea. She presented to the ER at [facility] yesterday with increasing lower extremity edema, productive cough, and worsening shortness of breath. She also reported elevated BP readings at home and a generalized headache. In the ED, troponin was found to be slightly elevated with possible new ST depressions on EKG. Laboratory evaluation demonstrated acute on chronic anemia. Creatinine stable at 2.2 mg/dL. TTE pending. Cardiology following. CXR demonstrated a small right pleural effusion and pulmonary edema. Kandace is diuresing with IV furosemide (40 mg daily). She remains on spironolactone. She is maintained on losartan. BP improving with home therapy. Dyspnea improving. Antibiotic therapy is being provided with Doxycycline. Afebrile since admission. Low grade fevers noted at home. Blood cultures NGTD. UA notable for 4+ protein. Urine microscopy acellular. Medical history notable for hypertension, tobacco abuse, GERD, depression, hyperlipidemia, and Celiac disease. Allergies Allergy/AdvReac Type Severity Reaction Status Date / Time cyclophosphamide Allergy Intermediate URINARY Verified 03/30/25 17:22 RETENTION vancomycin Allergy Intermediate THROAT Verified 03/30/25 17:22 SWELLS, HIVES codeine AdvReac Mild N/V Verified 03/30/25 17:22 Home Medications Medication Instructions Recorded Confirmed Type acetaminophen 500 mg tablet 500 mg PO Q6H PRN Pain 03/30/25 03/30/25 History allopurinol 100 mg tablet 100 mg PO HS 03/30/25 03/30/25 History amlodipine 5 mg tablet 5 mg PO HS 03/30/25 03/30/25 History clonazepam 0.5 mg tablet 0.5 mg PO HS 03/30/25 03/30/25 History famotidine 20 mg tablet 20 mg PO HS 03/30/25 03/30/25 History loratadine 10 mg tablet (Allergy 1 mg PO Q OTHER DAY 03/30/25 03/30/25 History Relief (loratadine)) losartan 100 mg tablet 100 mg PO QAM 03/30/25 03/30/25 History metoprolol tartrate 25 mg tablet 25 mg PO BID PRN Heart Palpitations 03/30/25 03/30/25 History montelukast 10 mg tablet 10 mg PO QAM 03/30/25 03/30/25 History mycophenolate sodium 180 mg 540 mg PO Q12H 03/30/25 03/30/25 History tablet,delayed release oxycodone 5 mg tablet 5 mg PO Q4H PRN Moderate-Severe 03/30/25 03/30/25 History Pain pantoprazole 40 mg tablet,delayed 40 mg PO QAM 03/30/25 03/30/25 History release risperidone 0.5 mg tablet 0.5 mg PO HS 03/30/25 03/30/25 History sertraline 100 mg tablet 100 mg PO QAM 03/30/25 03/30/25 History spironolactone 25 mg tablet 12.5 mg PO QAM 03/30/25 03/30/25 History tacrolimus 1 mg capsule, 2 mg PO Q12H 03/30/25 03/30/25 History immediate-release Patient History Surgical History H/O: hysterectomy Hx of cholecystectomy History of appendectomy Renal transplant, status post Family History Brother Hypertension Father Hypertension Kidney disease Mother Hypertension Sister Hypertension Son Hypertension Family/Other Kidney disease [place] Syndrome Social History Smoking Status: Current every day smoker Tobacco Type: Cigarettes Age Quit Using Tobacco: 53; Second Hand Exposure: Yes; Do You Dip or Chew Tobacco: No; Hx Alcohol Use: No Hx Substance Use: Yes Last Used Substance: Days (ago) Preferred Language: Taiwanese Communication Ability: Effective [employer] Supervisor Required: No Beliefs That Will Affect Care: None Current Living Situation: Spouse Feels Safe at Home: Yes Safety Concerns: Feels Safe At This Time Assistive Devices: Cane and Walker Review of Systems Review of Systems: All systems reviewed & are unremarkable except as noted in HPI & below Physical Exam Constitutional: WD/WN, vitals as above Eyes: + anicteric sclerae ENMT: external ear and nose normal, oropharynx normal Neck: normal visual inspection and trachea midline Respiratory: normal respiratory effort; no respiratory distress Auscultation: lungs clear to auscultation bilaterally and + rales (few basilar) Cardiovascular: Rate/Rhythm: regular rate and regular rhythm Heart Sounds: normal S1 and normal S2 Extremities: no edema Musculoskeletal: Extremities: no cyanosis and no clubbing Skin: no jaundice Neurologic: Motor/Sensory: + tremor (mild resting); no asterixis Psychiatric: Orientation: alert and oriented x 3 Results & Data Vital Signs (Past 12 Hours) Vital Signs Temp Pulse Pulse Resp BP Pulse Ox O2 Del Method 03/31/25 15:26 87 18 92 Room Air 03/31/25 15:20 37.0 C 80 18 157/84 H 90 Room Air 03/31/25 13:00 83 03/31/25 12:05 37.0 C 94 H 18 161/93 H 96 Room Air 03/31/25 11:06 71 18 93 Room Air 03/31/25 09:10 Nasal Cannula 03/31/25 08:05 37.0 C 90 18 170/89 H 97 Nasal Cannula 03/31/25 07:04 104 H 18 92 Nasal Cannula 03/31/25 06:45 92 H O2 Flow Rate 03/31/25 15:26 03/31/25 15:20 03/31/25 13:00 03/31/25 12:05 03/31/25 11:06 03/31/25 09:10 2 03/31/25 08:05 3 03/31/25 07:04 3 03/31/25 06:45 Laboratory Results Laboratory Results - last 24 hr 03/30/25 03/30/25 03/31/25 17:41 18:56 08:19 WBC 4.41 L RBC 2.85 L Hgb 8.8 L Hct 27.1 L MCV 95.1 MCH 30.9 MCHC 32.5 RDW Std Deviation 51.2 H RDW Coeff of Deepali 14.8 H Plt Count 271 MPV 10.8 Immature Gran % (Auto) 0.5 Neut % (Auto) 68.5 Lymph % (Auto) 20.6 [place] % (Auto) 7.7 Eos % (Auto) 1.6 Baso % (Auto) 1.1 Neut # (Auto) 3.02 Lymph # (Auto) 0.91 L [place] # (Auto) 0.34 Eos # (Auto) 0.07 Baso # (Auto) 0.05 Immature Gran # (Auto) 0.02 Sodium 143 Potassium 4.2 Chloride 117 H Carbon Dioxide 18 L Anion Gap 8 BUN 30 H Creatinine 2.06 H Est Cr Clr Drug Dosing 28.2 eGFR 27.10 BUN/Creatinine Ratio 14.6 Glucose 111 H Calcium 8.7 Magnesium 1.7 Iron 34 L TIBC 186 L Transferrin 133 L Transferrin % Sat 18 Ferritin 280.9 Total Bilirubin 0.3 AST 8 L ALT 7 Alkaline Phosphatase 114 H Troponin I High Sens 193.9 H* 161.1 H* Total Protein 5.5 L Albumin 3.0 L Globulin 2.5 Albumin/Globulin Ratio 1.2 Vitamin B12 847 Folate 20.26 TSH 0.729 Urine Color Yellow Urine Appearance Clear Urine pH 5.5 Ur Specific [place] 1.020 Urine Protein 4+ H Urine Glucose (UA) Negative Urine Ketones Negative Urine Blood Negative Urine Nitrite Negative Urine Bilirubin Negative Urine Urobilinogen Negative Ur Leukocyte Esterase Negative Urine WBC (Auto) 0-5 Urine RBC (Auto) 0-2 U Hyaline Cast (Auto) 0-2 U Epithel Cells (Auto) 0-2 Urine Bacteria (Auto) None Seen Urine Comment Stool Occult Bld Scrn Stl C. diff Tox B Gene Stl C. diff [id number] Tacrolimus Pending 03/31/25 Unknown WBC RBC Hgb Hct MCV MCH MCHC RDW Std Deviation RDW Coeff of Deepali Plt Count MPV Immature Gran % (Auto) Neut % (Auto) Lymph % (Auto) [place] % (Auto) Eos % (Auto) Baso % (Auto) Neut # (Auto) Lymph # (Auto) [place] # (Auto) Eos # (Auto) Baso # (Auto) Immature Gran # (Auto) Sodium Potassium Chloride Carbon Dioxide Anion Gap BUN Creatinine Est Cr Clr Drug Dosing eGFR BUN/Creatinine Ratio Glucose Calcium Magnesium Iron TIBC Transferrin Transferrin % Sat Ferritin Total Bilirubin AST ALT Alkaline Phosphatase Troponin I High Sens Total Protein Albumin Globulin Albumin/Globulin Ratio Vitamin B12 Folate TSH Urine Color Urine Appearance Urine pH Ur Specific [place] Urine Protein Urine Glucose (UA) Urine Ketones Urine Blood Urine Nitrite Urine Bilirubin Urine Urobilinogen Ur Leukocyte Esterase Urine WBC (Auto) Urine RBC (Auto) U Hyaline Cast (Auto) U Epithel Cells (Auto) Urine Bacteria (Auto) Urine Comment Stool Occult Bld Scrn Positive A Stl C. diff Tox B Gene Negative Cdiff Gene Stl C. diff [id number] NEGATIVE Tacrolimus Diagnostic Findings XR chest 1V portable COMPARISON STUDY: Chest CT July 08, 2013. Chest radiograph February 23, 2021. FINDINGS: There is no pneumothorax. A small right pleural effusion is noted. Mild interstitial thickening is present. Mild right hilar prominence is noted. The heart is mildly enlarged. There are mild bibasilar opacities. IMPRESSION: 1. Cardiomegaly. Interstitial thickening suggestive of mild pulmonary edema. 2. Small right pleural effusion. Mild bibasilar opacities which favor atelectasis. Radiographic follow-up to ensure resolution is recommended. 3. Bilateral hilar prominence, likely related to pulmonary vessels. This can also be assessed on follow-up radiographs. PG Care Time/CCT Total # of Minutes Spent Total Time Spent with Patient: Total time spent is greater than 50% in coordination of care (as documented) at patient's floor/unit and/or counseling patient: Coding Level of Care Code 24195 IN/OBS CONSULT LVL 5,80M Diagnoses Renal transplant, status post Z94.0 Focal segmental glomerulosclerosis N05.1 Pulmonary edema J81.1 Anemia D64.9
--- NOTE | 2025-03-31 17:42 | Hospitalist Progress Note ---
Date of Service March 31, 2025 Assessment & Plan (1) (HFpEF) heart failure with preserved ejection fraction: (2) Hypomagnesemia: (3) CKD (chronic kidney disease) stage 4, GFR 15-29 ml/min: (4) COPD (chronic obstructive pulmonary disease): Plan This patient is a 59-year-old female with a history of renal transplant secondary to FSGS with chronic GN, RBBB, HTN, COPD, HLD, PVCs, GERD, anxiety/depression, gout, who was recently admitted and discharged from [facility] on 03/17 for Streptococcus pneumoniae bacterial meningitis. She completed her IV ceftriaxone 03/26 and reports ever since then has been feeling more short of breath with a cough productive of small amounts of green sputum and worsening generalized weakness along with bilateral left greater than right leg swelling. She has had a generalized headache ever since the beginning of her previous hospitalization and is taking oxycodone which she thinks makes it worse. She has also had nausea and some vomiting (which she says is fairly chronic for her) as well as multiple episodes of diarrhea each d ay up to 4-5 times, nonbloody. She reports low-grade fevers at home to 99.3 degrees. She was visited by her home health nurse today who examined her and thought it sounded like she had pneumonia and sent her to the hospital. In the ED, her troponin was elevated at [address] depressions in the lateral leads with no ECG to compare to. She was hypertensive and with sinus tachycardia. Her anemia was worse than it had been based on discharge records from [facility]-hemoglobin was 10.3 on 03/17 and now down to 8.7. Her creatinine was stable at 2.2. Her CXR here showed a small right pleural effusion and pulmonary edema. Her magnesium level was also severely low at 1.1. In the ED, she was given 2 g of IV magnesium and 1.5 L of normal saline. She is admitted with acute on chronic HFpEF, possible NSTEMI, and acute respiratory with hypoxemia #Acute on chronic HFpEF/HTN/RBBB/elevated troponin/acute respiratory failure with hypoxemia-with elevated BNP, CXR with findings of CHF, increasing shortness of breath, supplemental O2 requirement, wheezing, suspect combination of acute on chronic HFpEF plus COPD exacerbation. Serial troponin trended downward, patient without chest pain despite ST depressions in lateral leads on ECG which are now improved. Blood pressures are quite elevated on admission, with peripheral edema and pulmonary edema on CXR. LLE venous Doppler neg for DVT (asymmetric edema). Tachycardic and hypertensive now improving. Now weaned off O2 to room air, diuresing well. Reviewed ECG with Cardio who has concerns for PE. ECHO with septal motion abnormality and hyperdynamic EF, mitral regurg. -continue Lasix 40 Mg IV x 1 again today and reassess renal function in the morning before giving further IV Lasix - Continue home spironolactone, amlodipine, losartan -check VQ scan for PE - Consult cardiology appreciated -needs improved BP control--> start beta portia-I ordered metoprolol and Cardio switched to Coreg - Daily weights, strict I's and O's #Hypomagnesemia/diarrhea/nausea/vomiting-magnesium severely low at 1.1 likely from GI losses and poor p.o. intake. With recent 2-week course of ceftriaxone now completed with 4-5 episodes of loose stools daily, no abdominal pain but having low-grade fevers at home. No fevers here. With ongoing loose stools,nonbloody, with negative C. diff. Nausea improved and may have been related to taking oxycodone at home - give 1 gram IV mag today - adv diet to low sodium - IV Zofran as needed -follow BMP, mag in AM -add imodium prn #COPD exacerbation/current smoker/acute respiratory failure with hypoxemia-with diffuse wheezing on admission which is now resolved; is a current smoker. Now weaned to room air after Duonebs, diuresis - continue Doxy 100 mg IV twice daily - continue DuoNebs 4 times daily scheduled - Avoid steroids right now due to immunocompromised state - 2 step walk test prior to discharge -checking VQ scan -add guaifenesin DM q6h for cough #CKD stage IV/history of renal transplant/FSGS-it seems her creatinine is around her baseline at 2.0 and improved from admission (2.2), with failing renal transplant. With metabolic acidosis, non-anion gap. She was started on sodium bicarbonate tablets during her recent admission at [facility] but she was thinking that those were making her have diarrhea so she stopped them. Serum bicarbonate is low at 18 and stable from previous - follow BMP and resume sodium bicarbonate if recommended by nephrology - Consult nephrology - Check tacrolimus level (pending) and continue current dose 2 Mg p.o. twice daily - Continue mycophenolate home dose #Anemia/leukopenia-hemoglobin low at 8.7-baseline from labs at [facility] was Hgb 10.3 in 03/17. Likely anemia of chronic disease. No bleeding from anywhere that she has noted. Fe studies c/w chronic disease. B121, folate, TSH all normal. Hemoccult positive but could just be from irritation from diarrhea especially since she's not iron deficient - likely needs epogen-defer to Nephro - Follow CBC #Recent bacterial meningitis/headache-Streptococcal pneumoniae grew out of cultures-patient reports she had pneumonia and bacterial meningitis. She completed a 2-week course of IV ceftriaxone at home on 03/26. Continues to have ongoing daily headache perhaps worsened by oxycodone - Tylenol only as needed for pain, avoid opioids as may be making things worse - No further antibiotics for this needed at this time for this #Anxiety/depression-no acute issues - Continue home Risperdal, sertraline, clonazepam #GERD-no acute issues - Continue PPI, Pepcid #Gout-continue allopurinol #Allergies-continue montelukast, Claritin DVT prophylaxis-heparin SQ 5000 twice daily Disposition-continued stay on medical floor with telemetry Admission and Anticipated Discharge Date Admission Date: March 30, 2025 Subjective Pt reports sleeping most of the day but feels a little better with less SOB. Cough still present at times and causes her to have coughing fits which make her more SOB. She is still having multiple loose stools -had 3 today that were green and w/ mucus Tele with NSR, rates 90-100s I discussed her care with Cardiology Physical Exam Constitutional: WD/WN, vitals as above ENMT: external ear and nose normal, oropharynx normal Neck: trachea midline, no thyromegaly Respiratory: normal respiratory effort; no cough Auscultation: lungs clear to auscultation bilaterally and + crackles (mild at bases and improved from previous); no rhonchi and no wheezes (now completely resolved) Cardiovascular: Rate/Rhythm: regular rate and regular rhythm Heart Sounds: no murmur Extremities: + edema (trace+ pitting edema of the left leg,no edema right leg-improved) Chest (Breasts): Chest: normal inspection of chest Gastrointestinal (Abdomen): normal bowel sounds, soft, nontender, no hepatosplenomegaly Musculoskeletal: Extremities: extremities normal to inspection; no cyanosis and no clubbing Skin: no rashes, warm and dry Neurologic: moves all extremities and awake; no focal motor deficits Psychiatric: A+Ox3, euthymic affect Results & Data Results & Data Vital Signs (Past 12 Hours) Vital Signs Temp Pulse Pulse Resp BP Pulse Ox O2 Del Method 03/31/25 15:26 87 18 92 Room Air 03/31/25 15:20 37.0 C 80 18 157/84 H 90 Room Air 03/31/25 13:00 83 03/31/25 12:05 37.0 C 94 H 18 161/93 H 96 Room Air 03/31/25 11:06 71 18 93 Room Air 03/31/25 09:10 Nasal Cannula 03/31/25 08:05 37.0 C 90 18 170/89 H 97 Nasal Cannula 03/31/25 07:04 104 H 18 92 Nasal Cannula 03/31/25 06:45 92 H O2 Flow Rate 03/31/25 15:26 03/31/25 15:20 03/31/25 13:00 03/31/25 12:05 03/31/25 11:06 03/31/25 09:10 2 03/31/25 08:05 3 03/31/25 07:04 3 03/31/25 06:45 Laboratory Results CBC, CMP, iron studies, B2, folate, TSH, C. diff, hemoccult reviewed PG Care Time/CCT Total # of Minutes Spent Total Time Spent with Patient: Total time spent is greater than 50% in coordination of care (as documented) at patient's floor/unit and/or counseling patient: Coding Level of Care Code 25449 SUB INP/OBS CARE 3/50MIN Diagnoses (HFpEF) heart failure with preserved ejection fraction I50.30 Hypomagnesemia E83.42 CKD (chronic kidney disease) stage 4, GFR 15-29 ml/min N18.4 COPD (chronic obstructive pulmonary disease) J44.9
[2025-03-31] MEDS: LOPERAMIDE HCL 2 MG CAP PO PRN (18:30)
[2025-03-31] MEDS: ASPIRIN 81 MG ECTAB PO SCH (18:30)
[2025-03-31] MEDS: ACETAMINOPHEN 500 MG TAB PO PRN (18:30)
[2025-03-31] MEDS: MAGNESIUM SULFATE / D5W 1 GM/100 ML BAG IV ONE (18:30)
[2025-04-01 06:18] LABS: Hematocrit (blood only) 25.0 % (37.0-47.0); Hemoglobin 8.3 g/dl (12.0-16.0); Immature Granulocytes # (auto) 0.02 K/uL (0.01-0.20); Immature Granulocytes % (auto) 0.5 %; Mean Corpuscular Hemoglobin 31.6 pg (25.0-34.0); Mean Corpuscular Volume 95.1 fL (80.0-100.0); Platelet Count 269 K/uL (130-400); RDW Standard Deviation 51.0 fL (36.4-46.3); Red Blood Count 2.63 M/uL (4.20-5.40); White Blood Count 3.97 K/ul (4.8-10.8)
[2025-04-01 06:41] LABS: Anion Gap 8.0 (3-11); Blood Urea Nitrogen 28.0 mg/dl (6-23); Calcium 8.5 mg/dl (8.6-10.3); Carbon Dioxide 20.0 mmol/L (21-32); Chloride 115.0 mmol/L (98-107); Creatinine Clr Calc Pharmacy 26.8 ml/min; Glucose 109.0 mg/dl (70-99(Fasting)); Magnesium 1.5 mg/dl (1.7-2.4); Potassium 3.9 mmol/L (3.5-5.1); Sodium 143.0 mmol/L (136-145)
--- NOTE | 2025-04-01 07:54 | Cardiology Progress Note ---
Date of Service April 01, 2025 Assessment & Plan (1) (HFpEF) heart failure with preserved ejection fraction: (2) CKD (chronic kidney disease) stage 4, GFR 15-29 ml/min: (3) Elevated troponin: (4) Abnormal EKG: Plan PMHX: 1. Right bundle-branch block-old; ECG possible c/w with PE. 2. NML lV fxn echo 05/2023 3. Hypertension. 4. Negative DSE for ischemia, 08/2018. 5. Status post renal transplantation in 2004 at [place]. 6. Recurrence of her focal segmental glomerular sclerosis with her transplanted kidney (this was the cause for her initial transplantation as well). 7. COPD and ongoing tobacco abuse. 8. Palpitations most consistent with PVCs. 9. NML Carotids 05/[address] depressions and a mildly elevated troponin on admission. She is without any chest pain and her dyspnea is better as well as her troponin is trending down. These findings COULD be c/w PE which we are waiting to r/o with VQ scan. Given her kidney disease, will not be able to use contrast at this time. She has multiple reasons for demand ischemia including acute illness, copd with hypoxia, fluid overload, and anemia, and possible PE. Start carvedilol for BP and titrate accordingly. She has an elevated bnp and was given a dose of diuretic last evening. Would continue to diurese with nephrology's guidance who is onboard as well. Echo is pending. Doppler of lower extremities was negative for DVT. There may be a component of nephrotic syndrome to her edema given her high urine protein and low serum albumin. Her blood pressure is hypertensive and will hopefully improve with further diureses. Continue home blood pressure medications. Her magnesium was replaced and should continue to be followed and supplemented per the hospitalists. It was normal this morning as was her potassium. Admission and Anticipated Discharge Date Admission Date: March 30, 2025 Subjective Patient feeling less SOB now, but last night her O2 sats dropped and had to be put back on oxygen. awaiting VQ scan. Unable to get nuclear material last pm. Her hx including her renal transplant from 2004 at [place] in [place] reviewed for FSGS. She was on PD x 4 years prior to her transplant. She reports having had proteinuria for years. Her creatinine runs about 2 melinda. She was able to pull up her labs from the hospitalization with [facility] for meningitis and pneumonia. She confirms getting Lovenox while in the hospital, but when she was dc on the pretty much was laying around and resting. Her ECG from yesterday is suspicious for PE with S in 1, Q in 3 T in 3 along with tachycardia. initial ECG also has limb lead reversal which was missed. Awaiting repeat. Review of Systems Review of Systems: All systems reviewed & are unremarkable except as noted in HPI & below Physical Exam Physical Exam: AAO in NAD appears chronically ill Respiratory: diminished bs b/l Cardiovascular: regular, tachy with movement Results & Data Vital Signs (Past 12 Hours) Vital Signs Temp Pulse Pulse Resp BP BP Pulse Ox 04/01/25 07:36 37.1 C 102 H 18 163/90 H 92 04/01/25 07:20 97 H 04/01/25 07:01 95 H 16 96 04/01/25 03:01 36.7 C 99 H 18 182/90 H 91 04/01/25 00:33 03/31/25 22:44 36.9 C 97 H 18 156/77 H 92 03/31/25 21:45 95 H 03/31/25 20:08 83 18 94 03/31/25 19:59 37.0 C 88 18 173/85 H 95 O2 Del Method O2 Flow Rate 04/01/25 07:36 Room Air 04/01/25 07:20 04/01/25 07:01 Room Air 04/01/25 03:01 Room Air 04/01/25 00:33 Nasal Cannula 2 03/31/25 22:44 Room Air 03/31/25 21:45 03/31/25 20:08 Room Air 03/31/25 19:59 Room Air Laboratory Results Abnormal lab results 03/30/25 03/31/25 03/31/25 Range/Units 17:41 08:19 Unknown WBC 4.41 L (4.8-10.8) K/ul RBC 2.85 L (4.20-5.40) M/uL Hgb 8.8 L (12.0-16.0) g/dl Hct 27.1 L (37.0-47.0) % RDW Std Deviation 51.2 H (36.4-46.3) fL RDW Coeff of Deepali 14.8 H (11.5-14.5) % Lymph # (Auto) 0.91 L (1.20-3.40) K/uL Chloride 117 H (98-107) mmol/L Carbon Dioxide 18 L (21-32) mmol/L BUN 30 H (6-23) mg/dl Creatinine 2.06 H (0.6-1.2) mg/dl Glucose 111 H (70-99(Fasting)) mg/dl Calcium (8.6-10.3) mg/dl Magnesium (1.7-2.4) mg/dl Iron 34 L (35-150) mcg/dl TIBC 186 L (250-450) mcg/dl Transferrin 133 L (200-360) mg/dl AST 8 L (13-39) U/L Alkaline Phosphatase 114 H (34-104) U/L Troponin I High Sens 193.9 H* 161.1 H* (0-14) pg/ml Total Protein 5.5 L (6.0-8.3) gm/dl Albumin 3.0 L (3.4-5.0) gm/dl Stool Occult Bld Scrn Positive A (Negative) 04/01/25 Range/Units 05:42 WBC 3.97 L (4.8-10.8) K/ul RBC 2.63 L (4.20-5.40) M/uL Hgb 8.3 L (12.0-16.0) g/dl Hct 25.0 L (37.0-47.0) % RDW Std Deviation 51.0 H (36.4-46.3) fL RDW Coeff of Deepali 14.9 H (11.5-14.5) % Lymph # (Auto) (1.20-3.40) K/uL Chloride 115 H (98-107) mmol/L Carbon Dioxide 20 L (21-32) mmol/L BUN 28 H (6-23) mg/dl Creatinine 2.17 H (0.6-1.2) mg/dl Glucose 109 H (70-99(Fasting)) mg/dl Calcium 8.5 L (8.6-10.3) mg/dl Magnesium 1.5 L (1.7-2.4) mg/dl Iron (35-150) mcg/dl TIBC (250-450) mcg/dl Transferrin (200-360) mg/dl AST (13-39) U/L Alkaline Phosphatase (34-104) U/L Troponin I High Sens (0-14) pg/ml Total Protein (6.0-8.3) gm/dl Albumin (3.4-5.0) gm/dl Stool Occult Bld Scrn (Negative)
[2025-04-01] MEDS: FUROSEMIDE 40 MG/4 ML VIAL IV ONE (09:17)
[2025-04-01] MEDS: LORATADINE 10 MG TAB PO SCH (09:20)
[2025-04-01] MEDS: MAGNESIUM SULFATE / D5W 1 GM/100 ML BAG IV SCH (09:24)
--- NOTE | 2025-04-01 09:50 | Nephrology Progress Note ---
Date of Service April 01, 2025 Assessment & Plan (1) Renal transplant, status post: Plan: Baseline creatinine 1.8-2.2 mg/dL. Creatinine stable. Electrolytes normal. Good UOP reported in response to diuretics. Continue tacrolimus and Myfortic as Rx. Tacro trough pending. BP and volume status acceptable. I/Os not accurately documented. Weight down ~1 kg in past 24 hours. Patient reports good response to diuretics. Medications are appropriate for kidney function. Repeat metabolic profile tomorrow AM. (2) Focal segmental glomerulosclerosis: Plan: Continue losartan per home Rx. Continue spironolactone as Rx. Urine protein to be quantified with 24 hour collection. (3) Pulmonary edema: Plan: Improving with diuretics. TTE: LVEF 70% hyperdynamic, inf wall + septum dyskinetic, moderate cLVH, mild MR, mild/moderate TR, RVSP 40-50. Low sodium diet. Continue furosemide to encourage negative fluid balance. Additional 40 mg furosemide provided this AM. Cardiology following. V/Q pending. (4) Anemia: Plan: Denies any signs of bleeding. Monitor H/H with repeat labs in the AM. Tsat slightly low ~18 with ferritin 280. Consider additional iron. Hold RUPESH therapy due to recent EKG changes and downtrending troponin. Admission and Anticipated Discharge Date Admission Date: March 30, 2025 Subjective No acute events overnight. Breathing more comfortably. Intermittent cough persists. Denies chest pain or palpitations. No fevers or chills. Edema has significantly improved. Review of Systems Review of Systems: All systems reviewed & are unremarkable except as noted in HPI & below Physical Exam Constitutional: WD/WN, vitals as above Eyes: + anicteric sclerae ENMT: external ear and nose normal, oropharynx normal Neck: normal visual inspection Respiratory: normal respiratory effort; no respiratory distress Auscultatio n: lungs clear to auscultation bilaterally and + rales (few basilar) Cardiovascular: Rate/Rhythm: regular rate and regular rhythm Heart Sounds: normal S1 and normal S2 Extremities: no edema Musculoskeletal: Extremities: no cyanosis and no clubbing Skin: no jaundice Neurologic: Motor/Sensory: no tremor and no asterixis Psychiatric: Orientation: alert and oriented x 3 Results & Data Vital Signs (Past 12 Hours) Vital Signs Temp Pulse Pulse Resp BP BP Pulse Ox 04/01/25 07:36 37.1 C 102 H 18 163/90 H 92 04/01/25 07:20 97 H 04/01/25 07:01 95 H 16 96 04/01/25 03:01 36.7 C 99 H 18 182/90 H 91 04/01/25 00:33 03/31/25 22:44 36.9 C 97 H 18 156/77 H 92 03/31/25 21:45 95 H O2 Del Method O2 Flow Rate 04/01/25 07:36 Room Air 04/01/25 07:20 04/01/25 07:01 Room Air 04/01/25 03:01 Room Air 04/01/25 00:33 Nasal Cannula 2 03/31/25 22:44 Room Air 03/31/25 21:45 Laboratory Results Laboratory Results - last 24 hr 03/31/25 04/01/25 Unknown 05:42 WBC 3.97 L RBC 2.63 L Hgb 8.3 L Hct 25.0 L MCV 95.1 MCH 31.6 MCHC 33.2 RDW Std Deviation 51.0 H RDW Coeff of Deepali 14.9 H Plt Count 269 MPV 10.8 Immature Gran % (Auto) 0.5 Neut % (Auto) 56.1 Lymph % (Auto) 31.0 [place] % (Auto) 8.3 Eos % (Auto) 2.8 Baso % (Auto) 1.3 Neut # (Auto) 2.23 Lymph # (Auto) 1.23 [place] # (Auto) 0.33 Eos # (Auto) 0.11 Baso # (Auto) 0.05 Immature Gran # (Auto) 0.02 Sodium 143 Potassium 3.9 Chloride 115 H Carbon Dioxide 20 L Anion Gap 8 BUN 28 H Creatinine 2.17 H Est Cr Clr Drug Dosing 26.8 eGFR 25.46 BUN/Creatinine Ratio 12.9 Glucose 109 H Calcium 8.5 L Magnesium 1.5 L Stool Occult Bld Scrn Positive A Stl C. diff Tox B Gene Negative Cdiff Gene Stl C. diff [id number] NEGATIVE PG Care Time/CCT Total # of Minutes Spent Total Time Spent with Patient: Total time spent is greater than 50% in coordination of care (as documented) at patient's floor/unit and/or counseling patient: Coding Level of Care Code 18826 SUB INP/OBS CARE 3/50MIN Diagnoses Renal transplant, status post Z94.0 Focal segmental glomerulosclerosis N05.1 Pulmonary edema J81.1 Anemia D64.9
[2025-04-01] MEDS: PNEUMOCOCCAL VACCINE (PCV20) 20-VAL CONJ-DIP CRM/PF 0.5 ML SYR IM ONE (11:45)
--- NOTE | 2025-04-01 14:26 | Electrocardiogram Report ---
Test Reason : Blood Pressure : */* mmHG Vent. Rate : 87 BPM Atrial Rate : 87 BPM P-R Int : 108 ms QRS Dur : 116 ms QT Int : 412 ms P-R-T Axes : 67 96 15 degrees QTcB Int : 495 ms Sinus rhythm with short WA Incomplete right bundle branch block Possible Right ventricular hypertrophy Nonspecific ST and T wave abnormality Prolonged QT Abnormal ECG When compared with ECG of 31-Mar-2025 06:04, Criteria for Lateral infarct are no longer Present T wave inversion no longer evident in Lateral leads Confirmed by Terrell Glass ([id number]) on 04/01/2025 2:25:48 PM Referred By: REFERRED SELF Confirmed By: Terrell Glass
--- NOTE | 2025-04-01 14:54 | Nuclear Medicine Report ---
NUCLEAR MEDICINE PERFUSION STUDY CLINICAL HISTORY: Dyspnea. COMPARISON STUDY: Chest radiograph March 30, 2025. TECHNIQUE: A nuclear medicine perfusion study was performed following intravenous injection of 5.3 mC i of technetium 99m MAA. Injection was performed at 2:37 PM. Imaging of the chest was performed in mu ltiple projections following radiotracer administration. No ventilation imaging was performed given v entilation precautions. FINDINGS: Mildly heterogeneous perfusion to the lungs is noted. No segmental defects are identified o n this examination. There are no areas of abnormal radiotracer uptake. This study is considered low p robability for pulmonary embolus. Exam is mildly compromised given lack of ventilation imaging. IMPRESSION: Exam mildly compromised given lack of ventilation imaging however considered low probabi lity for pulmonary embolus. ACT 112: Negative or not required by law. Electronically signed by: Eber Ibarra M.D. 04/01/2025 2:53 PM
--- NOTE | 2025-04-01 15:08 | Electrocardiogram Report ---
Test Reason : Blood Pressure : */* mmHG Vent. Rate : 89 BPM Atrial Rate : 89 BPM P-R Int : 110 ms QRS Dur : 118 ms QT Int : 416 ms P-R-T Axes : 42 62 -23 degrees QTcB Int : 506 ms Sinus rhythm with short CT Possible Left atrial enlargement Right bundle branch block T wave abnormality, consider inferior ischemia Abnormal ECG When compared with ECG of 31-Mar-2025 17:33, (unconfirmed) No significant change was found Confirmed by Terrell Glass ([id number]) on 04/01/2025 3:07:50 PM Referred By: REFERRED SELF Confirmed By: Terrell Glass
[2025-04-01] MEDS ORDERED: ALBUT/IPRATROP 3MG/0.5MG NEB 3 ML VIAL NEB PRN (15:22)
--- NOTE | 2025-04-01 16:22 | Hospitalist Progress Note ---
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 She completed her IV ceftriaxone 03/26 and reports ever since then has been feeling more short of breath with a cough productive of small amounts of green sputum and worsening generalized weakness along with bilateral left greater than right leg swelling. She has had a generalized headache ever since the beginning of her previous hospitalization and is taking oxycodone which she thinks makes it worse. She has also had nausea and some vomiting (which she says is fairly chronic for her) as well as multiple episodes of diarrhea each d ay up to 4-5 times, nonbloody. She reports low-grade fevers at home to 99.3 degrees. In the ED, her troponin was elevated at [address]ressions in the lateral leads with no ECG to compare to. She was hypertensive and with sinus tachycardia. Her anemia was worse than it had been based on discharge records from [facility]-hemoglobin was 10.3 on 03/17 and now down to 8.7. Her creatinine was stable at 2.2. Her CXR here showed a small right pleural effusion and pulmonary edema. Her magnesium level was also severely low at 1.1. In the ED, she was given 2 g of IV magnesium and 1.5 L of normal saline. She is admitted with acute on chronic HFpEF, myocardial demand ischemia, and acute respiratory with hypoxemia from CHF and COPD #Acute on chronic HFpEF/HTN/RBBB/elevated troponin/acute respiratory failure with hypoxemia-with elevated BNP, CXR with findings of CHF, increasing shortness of breath, supplemental O2 requirement, wheezing, suspect combination of acute on chronic HFpEF plus COPD exacerbation. Serial troponin trended downward, patient without chest pain despite ST depressions in lateral leads on ECG which are now improved. Blood pressures are quite elevated on admission, with peripheral edema and pulmonary edema on CXR. LLE venous Doppler neg for DVT (asymmetric edema). Tachycardic and hypertensive now improved. Now weaned off O2 to room air, diuresing well. Reviewed ECG with Cardio who has concerns for PE. ECHO with septal motion abnormality and hyperdynamic EF, mitral regurg. VQ scan low probability for PE. Renal function remained stable despite daily IV diuresis -continue Lasix 40 Mg IV x 1 yet again today and reassess renal function in the morning before giving further IV Lasix - Continue home spironolactone, amlodipine, losartan - Consult cardiology appreciated - Continue to work on improved BP control--> started Coreg - Daily weights, strict I's and O's #Hypomagnesemia/diarrhea/nausea/vomiting-magnesium severely low at 1.1 on admission likely from GI losses and poor p.o. intake. With recent 2-week course of ceftriaxone now completed with 4-5 episodes of loose stools daily, no abdominal pain but having low-grade fevers at home. No fevers here. She was negative for C. diff. Nausea improved and may have been related to taking oxycodone at home. She took 1 dose of Imodium on 03/31 and has no further diarrhea. Magnesium low again today at 1.5 from IV diuretics - Replaced with 2 gram IV mag today - IV Zofran as needed -follow BMP, mag in AM - Continue imodium prn #COPD exacerbation/current smoker/acute respiratory failure with hypoxemia-with diffuse wheezing on admission which is now resolved; is a current smoker. Now weaned to room air after Duonebs, diuresis - continue Doxy 100 mg twice daily but changed to p.o. and finish out 7-day course on 04/05. VQ scan low probability for PE. - continue DuoNebs but changed to as needed as she is much improved - Avoid steroids right now due to immunocompromised state - 2 step walk test prior to discharge -Continue guaifenesin DM q6h for cough #CKD stage IV/history of renal transplant/FSGS/proteinuria-it seems her creatinine is around her baseline at 2.0 and improved from admission (2.2), with failing renal transplant. With metabolic acidosis, non-anion gap. She was started on sodium bicarbonate tablets during her recent admission at [facility] but she was thinking that those were making her have diarrhea so she stopped them. Serum bicarbonate is low at 20 and improved from previous - follow BMP and resume sodium bicarbonate if recommended by nephrology - Consult nephrology appreciated-collecting 24-hour urine protein - Check tacrolimus level (pending) and continue current dose 2 Mg p.o. twice daily - Continue mycophenolate home dose #Anemia/leukopenia-hemoglobin low at 8.3 and stable-baseline from labs at [facility] was Hgb 10.3 in 03/17. Likely anemia of chronic disease. No bleeding from anywhere that she has noted. Fe studies c/w chronic disease. B121, folate, TSH all normal. Hemoccult positive but could just be from irritation from diarrhea especially since she's not iron deficient - likely needs epogen-defer to Nephro who recommends holding off on Epogen for now - Follow CBC #Recent bacterial meningitis/headache-Streptococcal pneumoniae grew out of cultures-patient reports she had pneumonia and bacterial meningitis. She completed a 2-week course of IV ceftriaxone at home on 03/26. Continues to have ongoing daily headache perhaps worsened by oxycodone. Headaches are now improving on 04/01 after stopping oxycodone - Tylenol only as needed for pain, avoid opioids as may be making things worse - No further antibiotics for this needed at this time for this #Anxiety/depression-no acute issues - Continue home Risperdal, sertraline, clonazepam #GERD-no acute issues - Continue PPI, Pepcid #Gout-continue allopurinol #Allergies-continue montelukast, Claritin DVT prophylaxis-heparin SQ 5000 twice daily Disposition-continued stay on medical floor with telemetry, but improving and could likely be discharged to home on 04/02. Will do 2 step prior to discharge Admission and Anticipated Discharge Date Admission Date: March 30, 2025 Subjective Patient feeling much improved. Still with a mild cough but improved with cough syrup. No diarrhea since taking Imodium yesterday. She does report occasional blood in her stool from hemorrhoids and thinks that is why her stool is heme positive. She also reports that her headache is now much improved. No further nausea or vomiting and is tolerating regular diet Telemetry with sinus rhythm, IVCD, rates in the 80s to 100s Physical Exam Constitutional: WD/WN, vitals as above Neck: trachea midline, no thyromegaly Respiratory: normal respiratory effort; no cough Auscultation: lungs clear to auscultation bilaterally Cardiovascular: Rate/Rhythm: regular rate and regular rhythm Heart Sounds: no murmur Extremities: + edema (trace+ pitting edema of the left leg,no edema right leg-much improved) Chest (Breasts): Chest: normal inspection of chest Gastrointestinal (Abdomen): normal bowel sounds, soft, nontender, no hepatosplenomegaly Musculoskeletal: Extremities: extremities normal to inspection; no cyanosis and no clubbing Skin: no rashes, warm and dry Neurologic: moves all extremities and awake; no focal motor deficits Psychiatric: A+Ox3, euthymic affect Results & Data Results & Data Vital Signs (Past 12 Hours) Vital Signs Temp Pulse Pulse Resp BP Pulse Ox O2 Del Method 04/01/25 15:22 36.6 C 79 18 151/77 H 93 Room Air 04/01/25 14:27 83 04/01/25 11:13 91 H 16 94 Room Air 04/01/25 11:11 36.8 C 78 18 138/80 91 Room Air 04/01/25 07:36 37.1 C 102 H 18 163/90 H 92 Room Air 04/01/25 07:20 97 H 04/01/25 07:01 95 H 16 96 Room Air Laboratory Results CBC, BMP, magnesium reviewed PG Care Time/CCT Total # of Minutes Spent Total Time Spent with Patient: Total time spent is greater than 50% in coordination of care (as documented) at patient's floor/unit and/or counseling patient: Coding Level of Care Code 75100 SUB INP/OBS CARE 3/50MIN Diagnoses (HFpEF) heart failure with preserved ejection fraction I50.30 Hypomagnesemia E83.42 CKD (chronic kidney disease) stage 4, GFR 15-29 ml/min N18.4 COPD (chronic obstructive pulmonary disease) J44.9
[2025-04-01] MEDS: DOXYCYCLINE HYCLATE 100 MG CAP PO SCH (20:20)
[2025-04-02 06:02] LABS: Hematocrit (blood only) 29.0 % (37.0-47.0); Hemoglobin 9.2 g/dl (12.0-16.0); Immature Granulocytes # (auto) 0.02 K/uL (0.01-0.20); Immature Granulocytes % (auto) 0.4 %; Mean Corpuscular Hemoglobin 30.4 pg (25.0-34.0); Mean Corpuscular Volume 95.7 fL (80.0-100.0); Platelet Count 312 K/uL (130-400); RDW Standard Deviation 51.8 fL (36.4-46.3); Red Blood Count 3.03 M/uL (4.20-5.40); White Blood Count 4.80 K/ul (4.8-10.8)
[2025-04-02 06:24] LABS: Anion Gap 8.0 (3-11); Blood Urea Nitrogen 26.0 mg/dl (6-23); Calcium 9.0 mg/dl (8.6-10.3); Carbon Dioxide 21.0 mmol/L (21-32); Chloride 114.0 mmol/L (98-107); Creatinine Clr Calc Pharmacy 27.3 ml/min; Glucose 96.0 mg/dl (70-99(Fasting)); Potassium 4.4 mmol/L (3.5-5.1); Sodium 143.0 mmol/L (136-145)
[2025-04-02 07:51] VITALS: TEMP 98.1
[2025-04-02 07:58] LABS: Total Volume Urine 2900.0 mL
[2025-04-02] MEDS: FUROSEMIDE 40 MG/4 ML VIAL IV ONE (08:36)
[2025-04-02 08:43] LABS: Magnesium 1.6 mg/dl (1.7-2.4)
--- NOTE | 2025-04-02 08:43 | Cardiology Progress Note ---
Date of Service April 02, 2025 Assessment & Plan (1) (HFpEF) heart failure with preserved ejection fraction: (2) CKD (chronic kidney disease) stage 4, GFR 15-29 ml/min: (3) Elevated troponin: (4) Abnormal EKG: Plan For possible DC today. Would rec she stay on ASA (for possible CAD) given NSTEMI as well as carvedilol and aldactone. Recommend f.u with Dr. Rodríguez in 2 weeks to discussed follow up pharmacologic stress testing to assess for CAD given her multiple CV risk factors. Check O2 sats with ambulation prior to DC. Nephology f/u given CKD as well as nephrotic range proteinuria. I agree with adding Jardiance or Farxiga as well. OK to DC from a cardiac standpoint. Admission and Anticipated Discharge Date Admission Date: March 30, 2025 Subjective Patient feeling less SOB now, but last night her O2 sats dropped and had to be put back on oxygen. awaiting VQ scan. Unable to get nuclear material last pm. Her hx including her renal transplant from 2004 at [facility] in [place] reviewed for FSGS. She was on PD x 4 years prior to her transplant. She reports having had proteinuria for years. Her creatinine runs about 2 melinda. She was able to pull up her labs from the hospitalization with [facility] for meningitis and pneumonia. She confirms getting Lovenox while in the hospital, but when she was dc on the pretty much was laying around and resting. VQ scan shows low probability of pulmonary embolus. Overall she is feeling better. She has not had CP and SOB is better. Review of Systems Review of Systems: All systems reviewed & are unremarkable except as noted in HPI & below Physical Exam Physical Exam: Without significant change since yesterday Respiratory: Diminished breath sounds bilaterally somewhat junky Cardiovascular: Heart regular no new murmurs appreciated Results & Data Vital Signs (Past 12 Hours) Vital Signs Temp Pulse Pulse Resp BP Pulse Ox O2 Del Method 04/02/25 07:50 36.7 C 84 24 157/91 H 93 Room Air 04/02/25 07:22 105 H 04/02/25 03:52 37 C 92 H 16 178/87 H 92 Room Air 04/01/25 23:12 37 C 82 16 159/85 H 95 Room Air 04/01/25 21:50 92 H Laboratory Results Abnormal lab results 04/01/25 04/02/25 Range/Units 05:00 05:35 RBC 3.03 L (4.20-5.40) M/uL Hgb 9.2 L (12.0-16.0) g/dl Hct 29.0 L (37.0-47.0) % MCHC 31.7 L (32.0-36.0) g/dL RDW Std Deviation 51.8 H (36.4-46.3) fL RDW Coeff of Deepali 15.3 H (11.5-14.5) % Lymph # (Auto) 1.08 L (1.20-3.40) K/uL Chloride 114 H (98-107) mmol/L BUN 26 H (6-23) mg/dl Creatinine 2.13 H (0.6-1.2) mg/dl Albumin 3.1 L (3.4-5.0) gm/dl Ur Total Protein 24 Hr 7406.6 H (0-149.1) mg/24 Hr Medications Administered Current Inpatient Medications Acetaminophen (Acetaminophen 500 Mg Tab) 500 mg PO Q6H PRN PRN Reason: Pain or Fever Stop: 04/29/25 20:40 Last Admin: 04/02/25 08:17 Dose: 500 mg Albuterol (Albut/Ipratrop 3mg/0.5mg Neb 3 Ml Vial) 3 ml NEB QIDR PRN; Protocol PRN Reason: Wheezing Stop: 05/01/25 15:21 Allopurinol (Allopurinol 100 Mg Tab) 100 mg PO [facility] Stop: 04/29/25 20:59 Last Admin: 04/01/25 20:20 Dose: 100 mg Amlodipine Besylate (Amlodipine Besylate 5 Mg Tab) 5 mg PO [facility] Stop: 04/29/25 20:59 Last Admin: 04/01/25 20:20 Dose: 5 mg Aspirin (Aspirin 81 Mg Ectab) 81 mg PO QAM [facility] Stop: 04/30/25 17:29 Last Admin: 04/02/25 08:20 Dose: 81 mg Carvedilol (Carvedilol 3.125 Mg Tab) 3.125 mg PO BIDM [facility] Stop: 05/01/25 07:59 Last Admin: 04/02/25 08:20 Dose: 3.125 mg Clonazepam (Clonazepam 0.5 Mg Tab) 0.5 mg PO [facility] Stop: 04/29/25 20:59 Last Admin: 04/01/25 20:20 Dose: 0.5 mg Doxycycline Hyclate (Doxycycline Hyclate 100 Mg Cap) 100 mg PO BID [facility]; Protocol Stop: 04/05/25 08:59 Last Admin: 04/02/25 08:20 Dose: 100 mg Famotidine (Famotidine 20 Mg Tab) 20 mg PO [facility] Stop: 04/29/25 20:59 Last Admin: 04/01/25 20:20 Dose: 20 mg Guaifenesin/Dextromethorphan (Guaifenesin/Dextrom Syrup 200mg/20mg 10ml Udc) 10 ml PO Q6H [facility] Stop: 04/30/25 17:29 Last Admin: 04/02/25 06:18 Dose: 10 ml Heparin Sodium (Porcine) (Heparin Sod 5,000 Unit/0.5 Ml Vial) 5,000 units SQ Q12 [facility] Stop: 04/29/25 20:59 Last Admin: 04/02/25 08:21 Dose: 5,000 units Loperamide HCl (Loperamide Hcl 2 Mg Cap) 2 mg PO Q6H PRN PRN Reason: Diarrhea Stop: 04/30/25 17:56 Last Admin: 03/31/25 18:30 Dose: 2 mg Loratadine (Loratadine 10 Mg Tab) 1 mg PO Q2D@0900 [facility] Stop: 05/01/25 08:59 Last Admin: 04/01/25 09:20 Dose: 1 mg Losartan Potassium (Losartan Potassium 50 Mg Tab) [facility] Stop: 04/30/25 08:59 Last Admin: 04/02/25 08:20 Dose: 100 mg Miscellaneous (Remove Nicoderm Patch) 1 each N/A DAILY@0859 [facility] Stop: 04/30/25 08:58 Last Admin: 04/02/25 08:23 Dose: 1 each Montelukast Sodium (Montelukast Sodium 10 Mg Tablet) [facility] Stop: 04/30/25 08:59 Last Admin: 04/02/25 08:20 Dose: 10 mg Mycophenolate Sodium (Mycophenolate Sodium 180 Mg Tab) 540 mg PO Q12H [facility] Stop: 04/29/25 20:59 Last Admin: 04/02/25 08:19 Dose: 540 mg Nicotine (Nicotine 14 Mg/24 Hr Patch) 1 patch TD [facility] Stop: 04/30/25 08:59 Last Admin: 04/02/25 08:22 Dose: 1 patch Ondansetron HCl (Ondansetron Inj 2 Mg/Ml 2 Ml Vial) 4 mg IV Q6H PRN PRN Reason: Nausea Stop: 04/29/25 20:40 Pantoprazole Sodium (Pantoprazole 40 Mg Tab) [facility] Stop: 04/30/25 08:59 Last Admin: 04/02/25 08:21 Dose: 40 mg Risperidone (Risperidone 0.5 Mg Tablet) 0.5 mg PO [facility] Stop: 04/29/25 20:59 Last Admin: 04/01/25 20:20 Dose: 0.5 mg Sertraline HCl (Sertraline Hcl 100 Mg Tablet) 100 mg PO [facility] Stop: 04/30/25 08:59 Last Admin: 04/02/25 08:20 Dose: 100 mg Spironolactone (Spironolactone 12.5 Mg Tab) 12.5 mg [facility] Stop: 04/30/25 08:59 Last Admin: 04/02/25 08:19 Dose: 12.5 mg Tacrolimus (Tacrolimus 1 Mg Cap) 2 mg PO Q12H [facility] Stop: 04/29/25 20:59 Last Admin: 04/02/25 08:18 Dose: 2 mg
--- NOTE | 2025-04-02 10:06 | Nephrology Progress Note ---
Date of Service April 02, 2025 Assessment & Plan (1) Renal transplant, status post: Plan: Baseline creatinine 1.8-2.2 mg/dL. Creatinine stable. Electrolytes normal. Continue tacrolimus and Myfortic as Rx. Tacro trough pending. BP and volume status acceptable. Medications are appropriate for kidney function. Kandace would like to follow up with Dr. Hein in the [facility] neph[facility] in [place]. I have made a request for these arrangements. Anticipated discharge home today. I discussed the plan of care with Dr. Khoury. Follow up with [facility] transplant on April 13 as scheduled. (2) Focal segmental glomerulosclerosis: Plan: Continue losartan per home Rx. Continue spironolactone as Rx. Urine protein on 24 hour collection quantified at 7.4 g. (3) Pulmonary edema: Plan: Improved. Continue furosemide 40 mg daily. (4) Anemia: Plan: Chronic, stable. Iron profile acceptable. Admission and Anticipated Discharge Date Admission Date: March 30, 2025 Subjective No acute events overnight. Kandace feels well this AM. She is breathing comfortably. No fevers or chills. No chest pains or palpitations. Review of Systems Review of Systems: All systems reviewed & are unremarkable except as noted in HPI & below Physical Exam Constitutional: WD/WN, vitals as above Eyes: + anicteric sclerae Neck: normal visual inspection Respiratory: normal respiratory effort; no respiratory distress Auscultation: lungs clear to auscultation bilaterally Cardiovascular: Rate/Rhythm: regular rate and regular rhythm Heart Sounds: normal S1 and normal S2 Extremities: no edema Musculoskeletal: Extremities: no cyanosis and no clubbing Skin: no jaundice Neurologic: Motor/Sensory: no tremor and no asterixis Psychiatric: Orientation: alert and oriented x 3 Results & Data Vital Signs (Past 12 Hours) Vital Signs Temp Pulse Pulse Resp BP Pulse Ox O2 Del Method 04/02/25 07:50 36.7 C 84 24 157/91 H 93 Room Air 04/02/25 07:22 105 H 04/02/25 03:52 37 C 92 H 16 178/87 H 92 Room Air 04/01/25 23:12 37 C 82 16 159/85 H 95 Room Air Laboratory Results Laboratory Results - last 24 hr 04/01/25 04/02/25 05:00 05:35 WBC 4.80 RBC 3.03 L Hgb 9.2 L Hct 29.0 L MCV 95.7 MCH 30.4 MCHC 31.7 L RDW Std Deviation 51.8 H RDW Coeff of Deepali 15.3 H Plt Count 312 MPV 10.3 Immature Gran % (Auto) 0.4 Neut % (Auto) 66.7 Lymph % (Auto) 22.5 Sanborn % (Auto) 6.5 Eos % (Auto) 3.1 Baso % (Auto) 0.8 Neut # (Auto) 3.20 Lymph # (Auto) 1.08 L Sanborn # (Auto) 0.31 Eos # (Auto) 0.15 Baso # (Auto) 0.04 Immature Gran # (Auto) 0.02 Sodium 143 Potassium 4.4 Chloride 114 H Carbon Dioxide 21 Anion Gap 8 BUN 26 H Creatinine 2.13 H Est Cr Clr Drug Dosing 27.3 eGFR 26.03 BUN/Creatinine Ratio 12.2 Glucose 96 Calcium 9.0 Phosphorus 4.2 Magnesium 1.6 L Albumin 3.1 L Urine Total Volume 2900 Ur Total Protein 24 Hr 7406.6 H Urine Total Protein 255.4 PG Care Time/CCT Total # of Minutes Spent Total Time Spent with Patient: Total time spent is greater than 50% in coordination of care (as documented) at patient's floor/unit and/or counseling patient: Coding Level of Care Code 99358 SUB INP/OBS CARE 3/50MIN Diagnoses Renal transplant, status post Z94.0 Focal segmental glomerulosclerosis N05.1 Pulmonary edema J81.1 Anemia D64.9
[2025-04-02] MEDS: MAGNESIUM SULFATE / D5W 1 GM/100 ML BAG IV ONE (11:46)
[2025-04-02 12:01] VITALS: BP 150/88; RESP 18; O2SAT 92
--- NOTE | 2025-04-02 13:02 | Discharge Summary ---
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 She completed her IV ceftriaxone 03/26 and reports ever since then has been feeling more short of breath with a cough productive of small amounts of green sputum and worsening generalized weakness along with bilateral left greater than right leg swelling. She has had a generalized headache ever since the beginning of her previous hospitalization and is taking oxycodone which she thinks makes it worse. She has also had nausea and some vomiting (which she says is fairly chronic for her) as well as multiple episodes of diarrhea each day up to 4-5 times, nonbloody. She reports low-grade fevers at home to 99.3 degrees. In the ED, her troponin was elevated at [address] depressions in the lateral leads with no ECG to compare to. She was hypertensive and with sinus tachycardia. Her anemia was worse than it had been based on discharge records from [facility]-hemoglobin was 10.3 on 03/17 and now down to 8.7. Her creatinine was stable at 2.2. Her CXR here showed a small right pleural effusion and pulmonary edema. Her magnesium level was also severely low at 1.1. In the ED, she was given 2 g of IV magnesium and 1.5 L of normal saline. She is admitted with acute on chronic HFpEF, myocardial demand ischemia, and acute respiratory with hypoxemia from CHF and COPD #Acute on chronic HFpEF/HTN/RBBB/elevated troponin/acute respiratory failure with hypoxemia-with elevated BNP, CXR with findings of CHF, increasing shortness of breath, supplemental O2 requirement, wheezing, suspect combination of acute on chronic HFpEF plus COPD exacerbation. Serial troponin trended downward, patient without chest pain despite ST depressions in lateral leads on ECG which are now improved. Blood pressures are quite elevated on admission, with peripheral edema and pulmonary edema on CXR. LLE venous Doppler neg for DVT (asymmetric edema). Tachycardic and hypertensive now improved. Now weaned off O2 to room air, diuresing well. Reviewed ECG with Cardio who has concerns for PE. ECHO with septal motion abnormality and hyperdynamic EF, mitral regurg. VQ scan low probability for PE. Renal function remained stable despite daily IV diuresis - She received Lasix 40 Mg IV daily for 4 days straight and had good diuresis- continue Lasix 40 Mg p.o. once daily on discharge - Continue home spironolactone, amlodipine, losartan - Consult cardiology [id number] as an outpatient for outpatient pharmacologic stress test - Continue to work on improved BP control--> started Coreg 3.125 Mg p.o. twice daily and titrate upward as needed as an outpatient - Daily weights, low-sodium diet on discharge #Hypomagnesemia/diarrhea/nausea/vomiting-magnesium severely low at 1.1 on admission likely from GI losses and poor p.o. intake. With recent 2-week course of ceftriaxone now completed with 4-5 episodes of loose stools daily, no abdominal pain but having low-grade fevers at home. No fevers here. She was negative for C. diff. Nausea improved and may have been related to taking oxycodone at home. She took 1 dose of Imodium on 03/31 and has no further diarrhea. Magnesium was mildly low through the day of admission but was replaced with IV magnesium - She will not need any further magnesium replacement after discharge now that she is eating properly and no further diarrhea #COPD exacerbation/current smoker/acute respiratory failure with hypoxemia-with diffuse wheezing on admission which is now much improved with DuoNebs; is a current smoker. Now weaned to room air after Duonebs, diuresis. She passed a two-step walk test on the day of discharge. She has never had pulmonary function test that she knows of. VQ scan low probability for PE. - Finish out a 7-day course of Doxy 100 mg twice daily through 04/05. - Start Breo Ellipta 1 puff daily on discharge continue albuterol as needed - Avoided steroids due to immunocompromised state -Continue guaifenesin DM q6h for cough - Continued to encourage smoking cessation and can continue on nicotine patches on discharge #CKD stage IV/history of renal transplant/FSGS/proteinuria-it seems her creatinine is around her baseline at 2.0 and improved from admission (2.2), with failing renal transplant. With metabolic acidosis, non-anion gap. She was started on sodium bicarbonate tablets during her recent admission at [facility] but she was thinking that those were making her have diarrhea so she stopped them. Serum bicarbonate is low but improved at 21 - follow BMP as an outpatient - Consult nephrology appreciated-collecting 24-hour urine protein which was resulted on the day of discharge at 7.4 g/day - Check tacrolimus level (pending) and continue current dose 2 Mg p.o. twice daily-pending on discharge - Continue mycophenolate home dose - Follow-up with transplant renal team as scheduled on 04/13 at [facility] and follow-up with new enterprise cloud architect, Dr. Hein in 1 month at the [place] office #Anemia/leukopenia-hemoglobin low at 8.3 and improved to 9.2 on the day of discharge. This is fairly stable-baseline from labs at [facility] was Hgb 10.3 in 03/17. Likely anemia of chronic disease. No bleeding from anywhere that she has noted. Fe studies c/w chronic disease. B12, folate, TSH all normal. Hemoccult positive but could just be from irritation from diarrhea especially since she's not iron deficient - likely needs epogen-defer to Nephro who recommends holding off on Epogen for now due to cardiac issues - Follow CBC as an outpatient #Recent bacterial meningitis/headache-Streptococcal pneumoniae grew out of cultures-patient reports she had pneumonia and bacterial meningitis. She completed a 2-week course of IV ceftriaxone at home on 03/26. Continues to have ongoing daily headache perhaps worsened by oxycodone. Headaches are now resolved since 04/01 after stopping oxycodone - Tylenol only as needed for pain, avoid opioids as may be making things worse - No further antibiotics for this needed at this time for this #Anxiety/depression-no acute issues - Continue home Risperdal, sertraline, clonazepam #GERD-no acute issues - Continue PPI, Pepcid #Gout-continue allopurinol #Allergies-continue montelukast, Claritin DVT prophylaxis-heparin SQ 5000 twice daily was provided Disposition-much improved, stable for discharged home. Discussed care with at the bedside on the day of discharge. Also discussed her care with nephrology and cardiology on the day of discharge Notes For Next Care Provider Follow-up tacrolimus level after discharge Needs close follow-up on blood pressures and volume status after discharge Cardiology will arrange for outpatient pharmacologic stress test after discharge Recommend PFTs as an outpatient Admission HPI Per Admitting Provider This patient is a 59-year-old female with a history of renal transplant second ludy to FSGS with chronic GN, RBBB, HTN, COPD, HLD, PVCs, GERD, anxiety/depression, gout, who was recently admitted and discharged from [facility] on 03/17 for Streptococcus pneumoniae bacterial meningitis. She completed her IV ceftriaxone 03/26 and reports ever since then has been feeling more short of breath with a cough productive of small amounts of green sputum and worsening generalized weakness along with bilateral left greater than right leg swelling. She has had a generalized headache ever since the beginning of her previous hospitalization and is taking oxycodone which she thinks makes it worse. She has also had nausea and some vomiting (which she says is fairly chronic for her) as well as multiple episodes of diarrhea each day up to 4-5 times, nonbloody. She reports low-grade fevers at home to 99.3 degrees. She was visited by her home health nurse today who examined her and thought it sounded like she had pneumonia and sent her to the hospital. In the ED, her troponin was elevated at [address] depressions in the lateral leads with no ECG to compare to. She was hypertensive and with sinus tachycardia. Her anemia was worse than it had been based on discharge records from [facility]-hemoglobin was 10.3 on 03/17 and now down to 8.7. Her creatinine was stable at 2.2. Her CXR here showed a small right pleural effusion and pulmonary edema. Her magnesium level was also severely low at 1.1. In the ED, she was given 2 g of IV magnesium and 1.5 L of normal saline. She is admitted with acute on chronic HFpEF, possible NSTEMI Discharge Exam Constitutional WD/WN, vitals as above Neck trachea midline, no thyromegaly Respiratory normal respiratory effort; no cough Auscultation: + wheezes (Mild expiratory wheezes bilaterally); no rhonchi Cardiovascular Rate/Rhythm: regular rate and regular rhythm Heart Sounds: no murmur Extremities: + edema (trace+ pitting edema of the left leg,no edema right leg- much improved) Chest (Breasts) Chest: normal inspection of chest Gastrointestinal (Abdomen) normal bowel sounds, soft, nontender, no hepatosplenomegaly Musculoskeletal Extremities: extremities normal to inspection; no cyanosis and no clubbing Skin no rashes, warm and dry Neurologic moves all extremities and awake; no focal motor deficits Psychiatric A+Ox3, euthymic affect Discharge Plan Discharge Items Patient Disposition: Home - Self-Care Reason For Visit: CHF,HYPOMAGNESEMIA Discharge Diagnosis: Acute on chronic HFpEF Hypomagnesemia COPD exacerbation with bronchitis Acute respiratory failure with hypoxemia-resolved Nausea/vomiting/diarrhea-resolved Condition on Discharge: Serious Activity: Resume your previous activity Non-emergency contact: Primary Care Provider, Catalyst [employer] Equipment Repairer Call non-emergency contact if: you have any medication questions and your symptoms worsen Follow-up/Referrals: Meeta Hein MD [Physician] - (Dr. Hein's office will contact you about your appointment date and time with nephrology in [place].) Javed Rodríguez DO [Physician] - (Dr. Rodríguez's office will contact you with your appointment date and time in 2 weeks. A cardiac stress test will be arranged for you.) Selene Wilson CRNP [Primary Care Provider] - (Follow-up within 1 to 2 weeks) Diet: Low Sodium (2gm) Addtl Attending Provider Instructions: You are admitted with respiratory failure from congestive heart failure and fluid overload from your recent hospitalization. You are also wheezing and having an exacerbation likely of COPD due to your history of smoking. You were started on a maintenance inhaler for COPD and please discuss with your PCP about having pulmonary function testing to diagnose COPD. Please continue to not smoke cigarettes. You can use nicotine patches to help with your nicotine cravings. Please finish out 3 and half more days of the antibiotic called doxycycline for your bronchitis. You were given IV Lasix and had removal of the excessive fluid. Please remain on a daily water pill called furosemide at 40 mg daily in the morning. You are also started on a new blood pressure medicine called carvedilol. Please follow- up with the assessment services manager which will be scheduled for you. They plan on doing a stress test as an outpatient to look for coronary artery disease. Please follow-up with the new enterprise cloud architect, Dr. Hein, when scheduled. Call your Primary Care doctor if any of the following symptoms or problems start or get worse: * Shortness of breath or difficulty breathing * Wake up at night short of breath * Chest pain * Cough * Swelling of your hands, feet, or legs * More fatigued or tired with your normal activity * Palpitations - sudden fast heart beats WEIGHT * Weigh yourself every morning after using the bathroom. * Use the same scale. * Wear the same amount of clothing. * Write your weight down on a chart. * Call your Primary Care doctor if you gain more than 2-3 pounds in 1-2 days. MEDICATIONS * Use this discharge instruction sheet for medication instructions. * Take your medications at the time your doctor ordered. * Do not skip a dose of your medicines. * If you miss a dose of medicine, take it as soon as possible, but DO NOT DOUBLE A DOSE. * Read your medicine information when you get home. * Know all of the side effects of your medicine. If in doubt, ask your pharmacist * Call your Primary Care doctor's office if you have any side effects. * Be sure all of your doctors know what medicine and herbs you take (including cold, flu, and herbal medicine). Take the following with you to your follow-up doctor appointments: * Weight Chart * Medication List * List of questions Do not drink excessive alcohol, beer or wine. Pending Studies at Discharge: No Stand-Alone Forms: My [employer], Smoking Cessation Medications and DC Order Prescriptions: New doxycycline hyclate 100 mg Capsule 100 mg PO BID Qty: 7 0RF carvedilol 3.125 mg Tablet 3.125 mg PO BIDM Qty: 60 0RF nicotine 7 mg/24 hr Patch 24 Hour 1 patch transdermal QAM Qty: 14 0RF fluticasone furoate-vilanterol [Breo Ellipta] 100-25 mcg/dose blister with device 1 inh inhalation DAILY Qty: 60 0RF furosemide [Lasix] 40 mg tablet 40 mg PO QAM Qty: 30 0RF aspirin 81 mg Tablet,Delayed Release (Dr/Ec) 81 mg PO QAM Qty: 3 0RF dextromethorphan-guaifenesin [Robitussin Cough-Chest Clint DM] 5-100 mg/5 mL Liquid 10 ml PO Q6H Qty: 120 0RF Rx Instructions: Gnaj-yry-hetksyr Continued clonazepam 0.5 mg tablet 0.5 mg PO HS Rx Instructions: Pt takes 0.5mg by mouth during the day IF needed sertraline 100 mg tablet 100 mg PO QAM amlodipine 5 mg tablet 5 mg PO HS allopurinol 100 mg tablet 100 mg PO HS acetaminophen [Tylenol Ex Str Rapid Release] 500 mg Tablet 500 mg PO Q6H PRN (Reason: Pain) spironolactone 25 mg tablet 12.5 mg PO QAM famotidine 20 mg tablet 20 mg PO HS pantoprazole 40 mg tablet,delayed release (DR/EC) 40 mg PO QAM montelukast 10 mg tablet 10 mg PO QAM losartan 100 mg tablet 100 mg PO QAM tacrolimus 1 mg capsule 2 mg PO Q12H loratadine [Allergy Relief (loratadine)] 10 mg tablet 1 mg PO Q OTHER DAY risperidone 0.5 mg tablet 0.5 mg PO HS mycophenolate sodium 180 mg tablet,delayed release (DR/EC) 540 mg PO Q12H Discontinued oxycodone 5 mg tablet 5 mg PO Q4H PRN (Reason: Moderate-Severe Pain) metoprolol tartrate 25 mg tablet 25 mg PO BID PRN (Reason: Heart Palpitations) Discharge Orders: Discharge Order- CHF (Routine); Ordered 04/02/25 Ordered By: Karen Khoury Admission Data Admit Date/Time: 03/30/25 19:04 Attending Provider: Karen Khoury Admit Provider: Karen Khoury Primary Care Provider: Selene Wilson V. Other Providers: Karen Khoury; Nickie Ardon; Gurmeet Tovar Hospital Stay Data Consultations 03/30/25 17:43 ED Decision to Admit Stat 03/30/25 20:41 Consult Cardiology Routine Consult Nephrology Routine Diagnostic Imagining Performed 03/30/25 19:04 US venous doppler LE LT Stat Pending Results Patient Have Any Pending Studies at Discharge: No Discharge Instructions Given to Patient (Per Discharging Provider) You are admitted with respiratory failure from congestive heart failure and fluid overload from your recent hospitalization. You are also wheezing and having an exacerbation likely of COPD due to your history of smoking. You were started on a maintenance inhaler for COPD and please discuss with your PCP about having pulmonary function testing to diagnose COPD. Please continue to not smoke cigarettes. You can use nicotine patches to help with your nicotine cravings. Please finish out 3 and half more days of the antibiotic called d oxycycline for your bronchitis. You were given IV Lasix and had removal of the excessive fluid. Please remain on a daily water pill called furosemide at 40 mg daily in the morning. You are also started on a new blood pressure medicine called carvedilol. Please follow- up with the assessment services manager which will be scheduled for you. They plan on doing a stress test as an outpatient to look for coronary artery disease. Please follow-up with the new enterprise cloud architect, Dr. Hein, when scheduled. Call your Primary Care doctor if any of the following symptoms or problems start or get worse: * Shortness of breath or difficulty breathing * Wake up at night short of breath * Chest pain * Cough * Swelling of your hands, feet, or legs * More fatigued or tired with your normal activity * Palpitations - sudden fast heart beats WEIGHT * Weigh yourself every morning after using the bathroom. * Use the same scale. * Wear the same amount of clothing. * Write your weight down on a chart. * Call your Primary Care doctor if you gain more than 2-3 pounds in 1-2 days. MEDICATIONS * Use this discharge instruction sheet for medication instructions. * Take your medications at the time your doctor ordered. * Do not skip a dose of your medicines. * If you miss a dose of medicine, take it as soon as possible, but DO NOT DOUBLE A DOSE. * Read your medicine information when you get home. * Know all of the side effects of your medicine. If in doubt, ask your pharmacist * Call your Primary Care doctor's office if you have any side effects. * Be sure all of your doctors know what medicine and herbs you take (including cold, flu, and herbal medicine). Take the following with you to your follow-up doctor appointments: * Weight Chart * Medication List * List of questions Do not drink excessive alcohol, beer or wine. Total Time Total Time Spent Total Time Spent (In Minutes): 35 minutes Total Time Includes: Examination of the Patient, Discharge Planning, Medication Reconciliation and Communication With Other Providers Coding Level of Care Code 56392 INP/OBS DISCH >30 MIN Diagnoses (HFpEF) heart failure with preserved ejection fraction I50.30 Hypomagnesemia E83.42 CKD (chronic kidney disease) stage 4, GFR 15-29 ml/min N18.4 COPD (chronic obstructive pulmonary disease) J44.9
[2025-04-02 13:43] VITALS: PULSE 94
--- NOTE | 2025-04-04 09:39 | Coding Query ---
CODING QUERY To promote full compliance with coding requirements relating to patient care, provider participation is requested in all cases of women's basketball coach uncertainty. Please assist us with the question(s) below: Coding Question(s): Possible NSTEMI is documented on the record with documentation starting on the ER of, "Non-ST elevation NV (NSTEMI)", and then the H&P and Progress Notes through 03/31 document, "She is admitted with acute on chronic HFpEF, possible NSTEMI, and acute respiratory with hypoxemia", however the Progress Notes 04/01 to the Discharge Summary document, "She is admitted with acute on chronic HFpEF, myocardial demand ischemia, and acute respiratory with hypoxemia from CHF and COPD", and the 04/02 Cardiology Progress Note documents, "Would rec she stay on ASA (for possible CAD) given NSTEMI as well as carvedilol and aldactone". It is not clear if the possible NSTEMI was ruled-out and felt to be Demand Ischemia or if the patient was treated for possible NSTEMI. Please specify below, in your clinical opinion: ( ) Possible NSTEMI (x ) Demand Ischemia only - the NSTEMI is Ruled-Out Physician's Response(s): Thank you Meg Bhatti Principal Diagnosis: "that condition established after study, to be chiefly responsible for occasioning the admission of the patient to the hospital for care." Co-Existing Principal Diagnosis: "when two or more diagnoses equally meet the criteria for principal diagnosis as determined by the circumstances of admission, diagnostic work up, and/or therapy provided, and the Alphabetic Index, Tabular List, or another coding guideline does not provide sequencing direction, any one of the diagnoses may be sequenced first." "When the physician has documented what appears to be a current diagnosis in the body of the record, but has not included the diagnosis in the final diagnostic statement, the physician should be asked whether the diagnosis should be added." (Source Coding Clinic 2 QTR90. p3-4) DIONNE
== END 2025-04-02 14:30 | disposition home or self-care (01) | DRG 291 ==
LOC: SUATTDRO → ED 14:40 → 2N 19:04